=== PATIENT | female | born 1940 | race Caucasian/White ===

== ENCOUNTER 2022-05-10 14:15 | Outpatient (CLI) | payer MEDICARE, SELFPAY ==
[2022-05-10 21:42] LABS: Hemoglobin A1C 6.3 % (<5.7)
[2022-05-10 22:48] LABS: Alanine Aminotransferase 19 U/L (6-35); Albumin Level 4.2 g/dL (3.5-5.1); Alkaline Phosphatase 102 U/L (38-126); Anion Gap 11 mmol/L (8-16); Aspartate Amino Transferase 23 U/L (14-36); Bilirubin,Total 0.4 mg/dL (0.2-1.3); Blood Urea Nitrogen 24 mg/dL (7-17); Calcium 11.3 mg/dL (8.4-10.2); Carbon Dioxide 26 mmol/L (22-30); Chloride 101 mmol/L (98-107); Cholesterol 173 mg/dL (0-200); Estimated Glomerular Filt Rate 43; Glucose 125 mg/dL (65-110); HDL Direct 61 mg/dL; Potassium 3.4 mmol/L (3.4-5.0); Sodium 138 mmol/L (137-145); Triglycerides 191 mg/dL (<150)
[2022-05-10 23:02] LABS: LDL Cholesterol Direct 65 mg/dL
== END 2022-05-10 14:16 | disposition home or self-care (01) ==
PROVIDERS: PCP Family Medicine; Visit Provider Family Medicine
DX: E78.5 Hyperlipidemia, unspecified (principal); I10 Essential (primary) hypertension; Z51.81 Encounter for therapeutic drug level monitoring; Z79.899 Other long term (current) drug therapy
CPT/HCPCS: 36415; 80053; 80061; 83036

== ENCOUNTER 2023-07-07 14:56 | Outpatient (CLI) | payer MEDICARE, SELFPAY ==
[2023-07-07 18:59] LABS: Basophils Percent Auto 0.4 % (0.2-1.2); Eosinophils Absolute Auto 0.2 K/mm3 (0-0.3); Eosinophils Percent Auto 2.5 % (0-4.4); Hematocrit 48.4 % (37.0-47.0); Hemoglobin 15.5 g/dL (12.0-15.0); Immature Granulocyte Absolute 0.02 K/mm3 (0.00-0.031); Immature Granulocyte Percent A 0.2 % (0-0.5); Lymphocytes Absolute Auto 3.02 K/mm3 (0.9-3.2); Lymphocytes Percent Auto 33.8 % (18.3-44.2); Mean Corpuscular Hemoglobin 30.8 pg (26-34); Mean Corpuscular Volume 96.2 fl (80-100); Mean Platelet Volume 10.4 fl (7.4-10.4); Monocytes Absolute Auto 0.8 K/mm3 (0.1-0.6); Monocytes Percent Auto 9.4 % (2.6-8.5); Neutrophils Absolute Auto 4.8 K/mm3 (1.3-6.7); Neutrophils Percent Auto 53.7 % (45.5-73.1); Platelet Count Result 275 k/mm3 (150-375); Red Blood Count 5.03 M/mm3 (4.2-5.4); Red Cell Distribution Width 13.4 % (11.5-14.5); White Blood Count 8.9 K/mm3 (4.5-10.0)
[2023-07-07 19:15] LABS: Parathyroid Intact 145.8 pg/mL (7.5-53.5)
[2023-07-07 19:28] LABS: Alanine Aminotransferase 16 U/L (6-35); Albumin Level 4.1 g/dL (3.5-5.1); Alkaline Phosphatase 122 U/L (38-126); Anion Gap 3 mmol/L (8-16); Aspartate Amino Transferase 24 U/L (14-36); Bilirubin,Total 0.4 mg/dL (0.2-1.3); Blood Urea Nitrogen 18 mg/dL (7-17); Calcium 11.4 mg/dL (8.4-10.2); Carbon Dioxide 32 mmol/L (22-30); Chloride 102 mmol/L (98-107); Cholesterol 243 mg/dL (0-200); Estimated Glomerular Filt Rate 48; Glucose 120 mg/dL (65-110); HDL Direct 77 mg/dL; Potassium 3.6 mmol/L (3.4-5.0); Sodium 137 mmol/L (137-145); Triglycerides 155 mg/dL (<150)
[2023-07-07 19:38] LABS: LDL Cholesterol Direct 109 mg/dL
[2023-07-07 21:49] LABS: Hemoglobin A1C 5.9 % (<5.7)
[2023-07-09 21:33] LABS: Ionized Calcium 5.6 mg/dL (4.7-5.5)
== END 2023-07-07 14:57 | disposition home or self-care (01) ==
LOC: ANHGOSHLAB 14:57
PROVIDERS: PCP Family Medicine; Visit Provider Family Medicine
DX: E11.9 Type 2 diabetes mellitus without complications (principal); Z13.220 Encounter for screening for lipoid disorders; R53.83 Other fatigue; E21.1 Secondary hyperparathyroidism, not elsewhere classified; Z13.228 Encounter for screening for other metabolic disorders; Z13.29 Encounter for screening for other suspected endocrine disorder
CPT/HCPCS: 36415; 80053; 80061; 82330; 83036; 83970; 84443; 85025

== ENCOUNTER 2023-10-11 07:51 | Inpatient (IN) | payer MEDICARE, SELFPAY ==
[2023-10-11] VITALS (20 sets, daily range): BP systolic 115–129; BP diastolic 59–94; PULSE 78–106; RESP 18–22; TEMP 36.4–36.6; O2SAT 88–97; BMI 38.5
--- NOTE | ~2023-10-11 | XR_ITS ---
Portable chest x-ray Comparison: 10/11/2023 Clinical History: Hypoxia Findings: Moderate left pleural effusion present. Mild haziness present, such in the right lung. Pro bable minimal right pleural effusion. Cardiomediastinal silhouette is stable. Bones and soft tissues are unremarkable. Impression: Moderate left pleural effusion and minimal right pleural effusion. Probable mild to moderate pulmonary edema. Reviewed, dictated and finalized at location . Impression: Moderate left pleural effusion and minimal right pleural effusion. Probable mild to moderate pulmonary edema.
--- NOTE | ~2023-10-11 | US_ITS ---
EXAMINATION: US thoracentesis DATE: 10/20/2023 14:14 INDICATION: Left pleural effusion TECHNIQUE: The procedure and its risks and benefits were discussed with the patient. Potential risks discussed included bleeding, infection, and pneumothorax. The patient understood the risks and agreed to proceed. The skin was prepped and draped in sterile fashion. 1% lidocaine was used for local anes thesia. Under ultrasound guidance, a 5 Fr catheter with trochar was advanced into the left pleural ef fusion. Fluid was aspirated. The catheter was removed, and a dressing was applied. There were no imme diate complications. FINDINGS: Ultrasound images demonstrate a small left pleural effusion and the catheter within the fluid. IMPRESSION: 1. Successful ultrasound-guided thoracentesis yielding 660 mL of yellowish fluid. Reviewed, dictated and finalized at location A. IMPRESSION: 1. Successful ultrasound-guided thoracentesis yielding 660 mL of yellowish flu id.
--- NOTE | ~2023-10-11 | CT_ITS ---
EXAMINATION: CTA chest PE protocol DATE: 10/22/2023 16:34 INDICATION: hypoxia. CHF. recent DVT TECHNIQUE: Computed tomography angiography (CTA) of the chest was performed with 100 mL Omnipaque-350 intravenous contrast timed to evaluate the pulmonary arteries. Coronal maximum intensity projection 3D-reconstructions were created by the technologist. The dose-length product (DLP) was 613.70 mGy-cm. Automated exposure control and iterative reconstruction technique were employed. COMPARISON: X-ray chest . FINDINGS: Lung parenchyma and airways: Peripheral consolidation in the lingula and left lower lobe. Patchy area s of reticular and groundglass opacity in the right lower lobe. 7 mm right middle lobe pulmonary nodu le Pleura: Small bilateral pleural effusions. Thoracic inlet, axillae and chest wall: Moderate body wall edema. Thoracic aorta: No aneurysm or dissection. Calcified and noncalcified atherosclerotic plaque. Mediastinum: Dilated central pulmonary arteries as can be seen with pulmonary arterial hypertension. Heart and pericardium: Cardiomegaly. No pericardial effusion. RV/LV ratio 1.0. Coronary artery calcifications: Moderate. Upper abdomen: Likely adrenal hyperplasia. Nonobstructing renal calcifications. Chronic appearing mensah creatic calcifications. Bones: No acute osseous finding. Pulmonary arteries: Study quality: Adequate. Occluded right middle lobe segmental arterial branch. Ec centric filling defect in the right interlobar pulmonary artery. Weblike pulmonary artery filling def ects in the bilateral lower lobe and left interlobar pulmonary arteries. No definite acute pulmonary artery filling defects. IMPRESSION: No CT evidence of acute pulmonary embolus. Eccentric right interlobar filling defect with occlusion o f the right middle lobe segmental branch and weblike defect in the bilateral lower lobe pulmonary art eries, most consistent with chronic pulmonary emboli. RV/LV ratio 1.0. Peripheral lingular and left lower lobe atelectasis/consolidation. Patchy areas of reticular and grou ndglass opacities in the right lower lobe, may represent chronic embolic change or infection. 7 mm right middle lobe pulmonary nodule, consider follow-up CT chest in 3 months, PET/CT, or tissue s ampling. Small bilateral pleural effusions. Reviewed, dictated and finalized at location K. IMPRESSION: No CT evidence of acute pulmonary embolus. Eccentric right interlobar filling d efect with occlusion of the right middle lobe segmental branch and weblike defe ct in the bilateral lower lobe pulmonary arteries, most consistent with chronic pulmonary emboli. RV/LV ratio 1.0. Peripheral lingular and left lower lobe atelectasis/consolidation. Patchy areas of reticular and groundglass opacities in the right lower lobe, may represent chronic embolic change or infection. 7 mm right middle lobe pulmonary nodule, consider follow-up CT chest in 3 month s, PET/CT, or tissue sampling. Small bilateral pleural effusions.
--- NOTE | ~2023-10-11 | XR_ITS ---
[id number] 10/20/2023 14:16 Indication: Postthoracentesis. Procedure: AP portable chest Comparison: 10/19/2023 Findings: Cardiomegaly with diffuse bilateral airspace disease which may represent edema or pneumonia . No pneumothorax identified. There is bilateral perihilar consolidation. Mediastinal lymphadenopathy is not excluded. Significantly decreased size of left pleural effusion. Impression: 1: Cardiomegaly with diffuse bilateral airspace disease which may represent edema or pneumonia. 2: No pneumothorax postthoracentesis. Decreased size of left pleural effusion. Reviewed, dictated and finalized at location B. Impression: 1: Cardiomegaly with diffuse bilateral airspace disease which may represent kat ma or pneumonia. 2: No pneumothorax postthoracentesis. Decreased size of left pleural effusion.
--- NOTE | ~2023-10-11 | XR_ITS ---
XR chest 1V portable 10/19/2023 06:05 Indication: CHF Procedure: AP portable chest Comparison: Comparison to multiple prior studies sequentially, with oldest reviewed study dated 10/10. Findings: Diffuse bilateral airspace disease with increasing balance in the right lower lung. Moderat e left pleural effusion. No pneumothorax. No acute osseous abnormality. Impression: 1: Persistent diffuse bilateral airspace disease with increasing confluence right lower lung. This mo st likely is secondary to edema, although superimposed pneumonia not excluded. 2: Stable moderate left pleural effusion. Reviewed, dictated and finalized at location A. Impression: 1: Persistent diffuse bilateral airspace disease with increasing confluence rig ht lower lung. This most likely is secondary to edema, although superimposed pn eumonia not excluded. 2: Stable moderate left pleural effusion.
--- NOTE | ~2023-10-11 | XR_ITS ---
XR chest 1V portable 10/21/2023 12:27 Indication: CHF. Cough. Procedure: AP portable chest Comparison: Comparison to multiple prior studies sequentially, with oldest reviewed study dated 10/10. Findings: Moderate left pleural effusion. Bibasilar atelectasis. Cardiomegaly. No pneumothorax. No ed nikhil. Impression: 1: Bibasilar atelectasis with moderate left pleural effusion. 2: Cardiomegaly. Reviewed, dictated and finalized at location L. Impression: 1: Bibasilar atelectasis with moderate left pleural effusion. 2: Cardiomegaly.
--- NOTE | ~2023-10-11 | US_ITS ---
EXAMINATION: US venous doppler [facility] DATE: 10/12/2023 17:15 INDICATION: asymmetric edema . TECHNIQUE: Grayscale images without and with compression and Doppler images of the bilateral lower ex tremity veins were obtained. COMPARISON: None FINDINGS: The right common femoral vein, profunda (deep) femoral vein, femoral vein, popliteal vein, peroneal v ein, posterior tibial veins, gastrocnemius vein, and greater saphenous vein are patent. Dilated noncompressible femoral and popliteal veins, with minimal preserved flow. The left common fem oral vein, profunda (deep) femoral vein, peroneal vein, posterior tibial veins, gastrocnemius vein, and greater saphenous vein are patent. IMPRESSION: Acute deep venous thrombosis in the left femoral and popliteal veins. Otherwise patent bilateral lowe r extremity veins. Reviewed, dictated and finalized at location K. IMPRESSION: Acute deep venous thrombosis in the left femoral and popliteal veins. Otherwise patent bilateral lower extremity veins.
--- NOTE | ~2023-10-11 | XR_ITS ---
EXAMINATION: XR chest 2V DATE: 10/11/2023 08:55 INDICATION: Shortness of breath and hypoxia TECHNIQUE: frontal and lateral views of the chest were obtained. COMPARISON: Chest radiograph dated 03/08/2013 FINDINGS: Diffuse bilateral interstitial and airspace opacities with lower lung predominance. This obscures the cardiac silhouette. No pneumothorax. Small left pleural effusion. No pneumothorax. Severe thoracic s pondylosis. IMPRESSION: 1. Diffuse bilateral lung disease with lower lung predominance which could represent either mild to m oderate pulmonary edema or pneumonia. 2. Small left pleural effusion. Reviewed, dictated and finalized at location A. IMPRESSION: 1. Diffuse bilateral lung disease with lower lung predominance which could repr esent either mild to moderate pulmonary edema or pneumonia. 2. Small left pleural effusion.
--- NOTE | 2023-10-11 07:57 | ECG_ITS ---
Measurements Intervals [place] Rate: 98 P: ID: 0 QRS: 128 QRSD: 77 T: 120 QT: 265 QTc: 339 Interpretive Statements ATRIAL FLUTTER/TACHYCARDIA RIGHT AXIS DEVIATION NONSPECIFIC ST & T-WAVE ABNORMALITY- ANT/INF LEADS BASELINE ARTIFACT- I, II, AVR ABNORMAL ECG NO PREVIOUS ECG AVAILABLE FOR COMPARISON Electronically Signed On 10-11-2023 8:05:49 CDT by Remington Prather D.O.
[2023-10-11 08:13] LABS: Basophils Percent Auto 0.2 % (0.2-1.2); Eosinophils Absolute Auto 0.2 K/mm3 (0-0.3); Eosinophils Percent Auto 2.4 % (0-4.4); Hematocrit 37.8 % (37.0-47.0); Hemoglobin 11.5 g/dL (12.0-15.0); Immature Granulocyte Absolute 0.05 K/mm3 (0.00-0.031); Immature Granulocyte Percent A 0.6 % (0-0.5); Lymphocytes Absolute Auto 1.69 K/mm3 (0.9-3.2); Lymphocytes Percent Auto 19.7 % (18.3-44.2); Mean Corpuscular HGB Conc 30.4 g/dl (32-36); Mean Corpuscular Hemoglobin 29.1 pg (26-34); Mean Corpuscular Volume 95.7 fl (80-100); Monocytes Percent Auto 11.7 % (2.6-8.5); Neutrophils Absolute Auto 5.6 K/mm3 (1.3-6.7); Neutrophils Percent Auto 65.4 % (45.5-73.1); Platelet Count Result 246 k/mm3 (150-375); Red Blood Count 3.95 M/mm3 (4.2-5.4); Red Cell Distribution Width 17.2 % (11.5-14.5); White Blood Count 8.6 K/mm3 (4.5-10.0)
[2023-10-11 08:21] LABS: Alanine Aminotransferase 35 U/L (6-35); Albumin Level 3.3 g/dL (3.5-5.1); Alkaline Phosphatase 130 U/L (38-126); Anion Gap 2 mmol/L (8-16); Aspartate Amino Transferase 29 U/L (14-36); Bilirubin,Total 0.7 mg/dL (0.2-1.3); Blood Urea Nitrogen 23 mg/dL (7-17); Calcium 10.5 mg/dL (8.4-10.2); Carbon Dioxide 33 mmol/L (22-30); Chloride 101 mmol/L (98-107); Estimated CRCL calculation 48 ml/min; Estimated Glomerular Filt Rate 60; Glucose 130 mg/dL (65-110); Potassium 3.7 mmol/L (3.4-5.0); Sodium 136 mmol/L (137-145)
[2023-10-11] MEDS: IPRATROPIUM 0.5 MG/ALBUTEROL SULFATE 2.5 MG AMPUL.NEB 3 ML INHALATION (08:28)
[2023-10-11 08:50] LABS: NT Pro B Type Natriuretic Pept 16300 pg/mL (19.9-100)
[2023-10-11 09:10] LABS: Influenza A QL RT-PCR Negative (Negative); Influenza B QL RT-PCR Negative (Negative); RSV RNA, RT-PCR Negative (Negative); SARS-CoV-2 RNA PCR Negative (Negative)
--- NOTE | 2023-10-11 09:32 | ED.SOB ---
HPI - SOB/Dyspnea General Chief Complaint: Shortness of Breath/Dyspnea Stated Complaint: dyspnea Time Seen by Provider: 10/11/23 07:52 History of Present Illness HPI Narrative: The patient is an 83-year-old female who presents ER with shortness of breath. She is currently wearing 4 L of oxygen. She endorses increased swelling in her legs over last couple days. She has coarse rales with breathing. No chest pain. she does not feel this neck at this time. Related Data Allergies Allergy/AdvReac Type Severity Reaction Status Date / Time amphetamine Allergy Unknown unknown Verified 10/11/23 08:15 chlorpheniramine Allergy Unknown unknown Verified 10/11/23 08:15 Penicillins Allergy Unknown unknown Verified 10/11/23 08:15 phenylephrine Allergy Unknown unknown Verified 10/11/23 08:15 pseudoephedrine Allergy Unknown unknown Verified 10/11/23 08:15 tetracycline Allergy Unknown unknown Verified 10/11/23 08:15 triprolidine Allergy Unknown unknown Verified 10/11/23 08:15 Review of Systems Review of Systems: All systems reviewed & are unremarkable except as noted in HPI and below Constitutional: Constitutional: Reports no additional constitutional complaints ENT: Reports system reviewed and no additional complaints, except as documented Cardiovascular: Cardiovascular: Reports no additional cardiovascular complaints Respiratory: Respiratory: Reports chest congestion, Reports cough, Reports dyspnea and Denies wheezing Gastrointestinal: Gastrointestinal: Reports no additional gastrointestinal complaints Genitourinary: Genitourinary: Reports no additional female genitourinary complaints PMFSH Past Medical History Medical History (Updated 10/11/23 @ 11:01 by Robin Tripathi MD) Chronic obstructive bronchitis without exacerbation Essential (primary) hypertension Hyperparathyroidism , secondary, non-renal Major depressive disorder, recurrent, moderate Type 2 diabetes mellitus without complications (05/13/16) Family History Family History Sibling Family history of primary malignant neoplasm of liver Family history of renal failure Family history of congestive heart failure Father Family history of malignant neoplasm of kidney Social History Social History Smoking status: Former smoker Tobacco type: cigarettes Alcohol intake: never Exam Narrative: GENERAL: Chronically ill-appearing, well-nourished, and in no acute distress. HEAD: Normocephalic, atraumatic. EYES: PERRL and EOMI. ENT: Mucous membranes moist. NECK: Supple. CHEST: Coarse bibasilar rales. No respiratory distress. HEART: Regular rate and rhythm. Normal peripheral pulses. ABDOMEN: Soft, nontender, nondistended. EXTREMITIES: Normal range of motion. 2+ edema. SKIN: Warm, dry, no rash. NEURO: Alert and oriented x3. PSYCH: Normal mood and affect. Course Course Emergency Course: Lasix for diuresis. Admit to hospitalist service. No flu/ COVID. Chest x-ray with pleural effusions and pulmonary edema. Vital Signs Vital signs: Vital Signs Temperature 97.7 F 10/11/23 07:45 Pulse Rate 102 H 10/11/23 07:45 Respiratory Rate 22 H 10/11/23 07:45 Blood Pressure 124/94 H 10/11/23 07:45 Pulse Oximetry 88 L 10/11/23 07:45 Oxygen Delivery Nasal Cannula 10/11/23 07:45 Oxygen Flow Rate 4 10/11/23 07:45 Temperature 97.8 F 10/11/23 10:26 Pulse Rate 105 H 10/11/23 10:26 Respiratory Rate 20 10/11/23 10:26 Blood Pressure 115/65 10/11/23 10:26 Pulse Oximetry 96 10/11/23 10:26 Oxygen Delivery Nasal Cannula 10/11/23 08:08 Oxygen Flow Rate 4 10/11/23 08:08 MDM - SOB/Dyspnea Lab Data 10/11/23 08:05 10/11/23 08:05 Labs: Lab Results 10/11/23 10/11/23 Range/Units 08:05 08:29 WBC 8.6 (4.5-10.0) K/mm3 RBC 3.95 L (4.2-5.4) M/mm3 Hgb 11.5 L D (12.0-15.0) g/
[2023-10-11] MEDS: FUROSEMIDE INJ 40 MG/4 ML VIAL IV PUSH ×3 (10:06→20:06)
--- NOTE | 2023-10-11 11:13 | PC.NURSE ---
This patient, Florence Mcghee, was admitted to Medical Room 241-. Patient/family oriented to hospital policies and general routines including ID bracelet, bed and alarms, visiting hours, pain management, procedures, bathroom and other care routines, personal items, smoking policy, room service/diet, and visiting hours. Information on how to activate the Rapid Response Team has been discussed. Patient/Family are encouraged to report perceived risks to care and to ask questions if they do not understand what they are told or what they should do.
--- NOTE | 2023-10-11 12:06 | PC.NURSE ---
Spoke to nursing facility regarding settings of CPAP. Facility stated patient is non-compliant and does not wear it.
--- NOTE | 2023-10-11 13:00 | PM.IMHP ---
H&P: HPI History of Present Illness Date/Time: 10/11/23 13:00 Chief Complaint: SOB Narrative: 83 y/o F presents here with SOB with PMH of COPD, HTN, hyperparathyroid, depression, and prediabetic. Patient presented here via EMS for SOB and hypoxia from [facility]. Staff reported to EMS that patient's sat was 65% on RA, placed on supplemental O2 before their arrival. Given DuoNeb and Solu-Medrol by EMS and improved upon presentation to the Emergency Department but continued to have coarse rales per ED provider's initial assessment. Endorsing increased LE swelling over the last 5 days. Denies chest pain, pressure, or palpitations. Denies fever, chills, cough, loss of appetite, or increased body aches. Having some increased weakness over the last week that is a deviation from her baseline. No known history of CHF or heart failure. No known history of dysrhythmia. Patient does wear 2L supplemental O2 majority of the time, started a few months ago. Initial VS at presentation: ED workup showed: WBC 8.6, Hgb 11.5, creatinine 0.9, calcium 10.5, BNP 16,300, and viral PCR negative. CXR showed diffuse bilateral lung disease with lower lung predominance which could represent either mild to moderate pulmonary edema or pneumonia and small left pleural effusion. Review of Systems Review of Systems: All systems reviewed & are unremarkable except as noted in HPI and below PMFSH Past Medical History Medical History Chronic bronchitis Chronic obstructive bronchitis without exacerbation Dementia ESRD (end stage renal disease) Essential (primary) hypertension Hyperlipidemia LDL goal <100 Hyperparathyroidism , secondary, non-renal Major depressive disorder, recurrent, moderate Obesity (BMI 35.0-39.9 without comorbidity) Obstructive sleep apnea Prediabetes Family History Family History Sibling Family history of primary malignant neoplasm of liver Family history of renal failure Family history of congestive heart failure Father Family history of malignant neoplasm of kidney Social History Social History Smoking status: Current every day smoker Tobacco type: cigarettes Alcohol intake: never Substance use: never Do You Feel Safe in your Home?: Yes Lack of Transportation: YES Lack of Food: Sometimes True Current Housing: I Have Housing Concerned About Future Housing: No Difficulty Paying Gas/Electric Bills: No Difficulty Paying for Meds: No Currently Unemployed: No Education: High School Diploma/GED Difficulty w/ Childcare or Family Care: No Spiritual care concerns: No Meds Home Medications and Allergies Home Medications Medication Instructions Recorded Confirmed Type albuterol sulfate 90 mcg/actuation 1 inh inhalation Q4H PRN shortness 04/28/23 10/11/23 Rx aerosol inhaler of breath or wheezing #8.5 grams atenolol 25 mg tablet 25 mg PO HS 10/11/23 10/11/23 History budesonide-formoterol HFA 160 2 puff inhalation BID 10/11/23 10/11/23 History mcg-4.5 mcg/actuation aerosol inhaler (Symbicort) ciclopirox 0.77 % topical cream 1 applic topical BID 10/11/23 10/11/23 History furosemide 40 mg tablet 40 mg PO DAILY 10/11/23 10/11/23 History metolazone 2.5 mg tablet 2.5 mg PO DAILY 10/11/23 10/11/23 History potassium chloride 20 mEq 20 meq PO EVERY OTHER DAY 10/11/23 10/11/23 History tablet,extended release(part/cryst) pravastatin 20 mg tablet 20 mg PO HS 10/11/23 10/11/23 History sertraline 100 mg tablet 100 mg PO HS 10/11/23 10/11/23 History telmisartan 40 mg tablet 40 mg PO HS 10/11/23 10/11/23 History tiotropium bromide 18 mcg capsule 1 cap inhalation DAILY 10/11/23 10/11/23 History with inhalation device (Spiriva with HandiHaler) Allergies Allergy/AdvReac Type Severity Reaction Status Date / Time
[2023-10-11] MEDS: METOPROLOL TARTRATE INJ 5 MG/5 ML VIAL IV PUSH ×2 (15:39→23:01)
--- NOTE | 2023-10-11 16:26 | ECG_ITS ---
Measurements Intervals [place] Rate: 120 P: MT: 0 QRS: 110 QRSD: 82 T: 0 QT: 138 QTc: 195 Interpretive Statements SUPRAVENTRICULAR TACHYCARDIA RIGHT AXIS DEVIATION BORDERLINE T WAVE ABNORMALITY- DIFFUSE LEADS BASELINE ARTIFACT- I, II, III, AVR, AVL, AVF ABNORMAL ECG COMPARED TO ECG 10/11/2023 07:59:24 SUPRAVENTRICULAR TACHYCARDIA NOW PRESENT Electronically Signed On 10-11-2023 21:28:01 CDT by Remington Prather D.O.
[2023-10-11] MEDS: FLUTICASONE/SALMETEROL 115-21 MCG INHALER 1 PUFF 2 PUFF INHALATION (20:05)
[2023-10-11] MEDS: PRAVASTATIN SODIUM 20 MG TABLET PO (20:06)
[2023-10-11] MEDS: TELMISARTAN 40 MG TABLET PO (20:06)
[2023-10-11] MEDS: SERTRALINE HCL 50 MG TABLET 100 MG PO (20:06)
[2023-10-11] MEDS: atenoloL 25 MG TABLET PO (20:07)
--- NOTE | 2023-10-11 22:45 | ECG_ITS ---
Measurements Intervals [place] Rate: 73 P: HI: 0 QRS: 112 QRSD: 80 T: 55 QT: 372 QTc: 412 Interpretive Statements SINUS RHYTHM WITH FIRST DEGREE AV BLOCK ATRIAL AND VENTRICULAR PREMATURE COMPLEXES WITH COMPENSATORY PAUSES RIGHT AXIS DEVIATION BORDERLINE T WAVE ABNORMALITY- ANTEROLAT/INF LEADS BASELINE ARTIFACT- I, AVR, AVL, AVF ABNORMAL ECG COMPARED TO ECG 10/11/2023 19:34:48 SINUS RHYTHM NOW PRESENT ATRIAL AND VENTRICULAR PREMATURE COMPLEXES NOW PRESENT Electronically Signed On 10-12-2023 8:02:10 CDT by Remington Prather D.O.
[2023-10-12] VITALS (16 sets, daily range): BP systolic 100–116; BP diastolic 44–82; PULSE 66–108; RESP 17–24; TEMP 36.6–36.9; O2SAT 91–97
[2023-10-12 05:43] LABS: Basophils Percent Auto 0.1 % (0.2-1.2); Eosinophils Percent Auto 0.1 % (0-4.4); Hematocrit 35.2 % (37.0-47.0); Hemoglobin 10.6 g/dL (12.0-15.0); Immature Granulocyte Absolute 0.03 K/mm3 (0.00-0.031); Immature Granulocyte Percent A 0.3 % (0-0.5); Lymphocytes Absolute Auto 1.42 K/mm3 (0.9-3.2); Lymphocytes Percent Auto 15.5 % (18.3-44.2); Mean Corpuscular HGB Conc 30.1 g/dl (32-36); Mean Corpuscular Hemoglobin 28.8 pg (26-34); Mean Corpuscular Volume 95.7 fl (80-100); Mean Platelet Volume 10.1 fl (7.4-10.4); Monocytes Absolute Auto 1.2 K/mm3 (0.1-0.6); Monocytes Percent Auto 12.7 % (2.6-8.5); Neutrophils Absolute Auto 6.5 K/mm3 (1.3-6.7); Neutrophils Percent Auto 71.3 % (45.5-73.1); Platelet Count Result 222 k/mm3 (150-375); Red Blood Count 3.68 M/mm3 (4.2-5.4); Red Cell Distribution Width 17.2 % (11.5-14.5); White Blood Count 9.2 K/mm3 (4.5-10.0)
[2023-10-12 05:57] LABS: Alanine Aminotransferase 31 U/L (6-35); Alkaline Phosphatase 96 U/L (38-126); Anion Gap 3 mmol/L (8-16); Aspartate Amino Transferase 27 U/L (14-36); Bilirubin,Total 0.7 mg/dL (0.2-1.3); Blood Urea Nitrogen 26 mg/dL (7-17); Calcium 10.1 mg/dL (8.4-10.2); Carbon Dioxide 31 mmol/L (22-30); Chloride 100 mmol/L (98-107); Estimated CRCL calculation 44 ml/min; Estimated Glomerular Filt Rate 60; Glucose 144 mg/dL (65-110); Potassium 3.9 mmol/L (3.4-5.0); Sodium 134 mmol/L (137-145)
[2023-10-12 07:41] LABS: Hemoglobin A1C 6.8 % (<5.7)
[2023-10-12] MEDS: FLUTICASONE/SALMETEROL 115-21 MCG INHALER 1 PUFF 2 PUFF INHALATION ×2 (08:54→19:31)
[2023-10-12] MEDS: UMECLIDINIUM BROMIDE 62.5 MCG ELLIPTA 1 PUFF INHALATION (08:54)
[2023-10-12] MEDS: POTASSIUM CHLORIDE 20 MEQ PACKET (FOR LIQUID) PO (10:35)
--- NOTE | 2023-10-12 11:39 | PM.IMPN ---
Progress Note: A&P Assessment and Plan (1) Hypoxia: Code(s): R09.02 - Hypoxemia Status: Acute Assessment and Plan: Patient has been having increasing pedal edema for the past few weeks. [facility] but symptoms worsened CXR showing diffuse bilateral lung disease and small left pleural effusion. BNP 16,300. EKG as mentioned below COVID, Influenza and RSV PCR negative. Hypoxia most likely related to CHF. PNA felt less likely. Lasix IV started but BP soft now. She had brisk UOP Echo pending Continue monitoring daily weights, I&Os and blood pressure Change Lasix regiment and hold anti-HTN medications. Check LE dopplers given the asymmetry of edema (2) Tachyarrhythmia: Code(s): R00.0 - Tachycardia, unspecified Status: Acute Assessment and Plan: Initial EKG showing atrial flutter/tachycardia, RAD and nonspecific ST and T-wave changes Repeat EKG showing SVT (120) with diffuse borderline T wave changes. Metoprolol 5mg IV once given. EKG showing NSR with first degree block. She is on Atenolol 25 mg HS at home but will stop as we attempt diuresis. Dysrhythmia maybe the etiology of her CHF exacerbation TSH normal in June Cardiology consulted and metoprolol started. Monitor on tele (3) Essential (primary) hypertension: Code(s): I10 - Essential (primary) hypertension Status: Acute Assessment and Plan: Patient's blood pressure was reviewed on 10/11 Blood pressure soft today Will stop atenolol and telmisartan Follow (4) Prediabetes: Code(s): R73.03 - Prediabetes Status: Acute Assessment and Plan: A1c 6.8% The patient's blood glucose was reviewed on 10/11 Glucose remains well controlled. Continue to monitor (5) Dementia: Code(s): F03.90 - Unspecified dementia, unspecified severity, without behavioral disturbance, psychotic disturbance, mood disturbance, and anxiety Status: Acute Assessment and Plan: Stable. Continue Zoloft for depression. 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 Slept okay last night. Not on O2 at home. Patient alert but confused so hx unreliable. Review of Systems Review of Systems: ROS unobtainable: Yes unobtainable due to mental status Exam Narrative: AF 98.5 102/44 101 24 92% 3L Gen - NARD sitting up in bed Chest - bibasilar inspiratory crackles, nml RR CV - RRR S1/S2; Tele showing episodic sinus bradycardia/dysrhythmia Abd - Soft, NT/ND, Positive BS Ext - R>L 2++ pedal edema Neuro - Alert but confused (oriented to location and month). Nonfocal exam. Psych - Nml mood and affect Skin - Warm and dry Objective Data Vital Signs Vital Signs: Vital Signs - 24 hr 10/11/23 12:00 10/11/23 15:39 10/11/23 15:52 Temperature Pulse Rate 106 H 90 Respiratory Rate Blood Pressure Pulse Oximetry 97 Oxygen Delivery Nasal Cannula Oxygen Flow Rate 2 Fraction of Inspired Oxygen 28 10/11/23 16:00 10/11/23 16:46 10/11/23 20:07 Temperature Pulse Rate 78 90 Respiratory Rate Blood Pressure 120/59 L Pulse Oximetry Oxygen Delivery Oxygen Flow Rate Fraction of Inspired Oxygen 10/11/23 20:00 10/11/23 20:10 10/11/23 23:01 Temperature 97.5 F L Pulse Rate 90 100 Respiratory Rate 18 Blood Pressure 118/59 L Pulse Oximetry 94 94 Oxygen Delivery Nasal Cannula Oxygen Flow Rate 2 Fraction of Inspired Oxygen 10/11/23 23:03 10/11/23 20:00 10/12/23 00:00 Temperature Pulse Rate 101 H 104 H 71 Respiratory Rate 18 Blood Pressure 119/62 Pulse Oximetry 93 Oxygen Delivery Oxygen Flow Rate Fraction of Inspired Oxygen 10/12/23 04:00 10/12/23 05:49 10/11/23 20:06 Temperature 9
[2023-10-12] MEDS: FUROSEMIDE INJ 40 MG/4 ML VIAL 20 MG IV PUSH ×2 (12:29→21:54)
--- NOTE | 2023-10-12 12:40 | PM.CNCAR ---
Assessment and Plan Assessment and plan (1) Acute exacerbation of CHF (congestive heart failure): Code(s): I50.9 - Heart failure, unspecified Status: Acute Plan This is an 83-year-old woman who appears to have some dementia she is a long term resident and is brought to the hospital because of shortness of breath hypoxemia and what appears to be biventricular heart failure on exam and on x-ray. She is taking a regimen including angiotensin receptor sergio, furosemide and metolazone making me suspicious that she is known to have CHF early some physician is treating her as such. We do not have any records that detail anything like that. For now she is being treated with intravenous furosemide which is appropriate as she is clearly volume overloaded. An echocardiogram has been ordered which will be done tomorrow this will allow me to decide upon additional guideline directed medical therapy for her. At some point of course we need to make decisions about providing anticoagulation or not given her atrial arrhythmias with which she was admitted. Ken Patel MD [facility] History of Present Illness History of Present Illness Consult date/time: 10/12/23 12:40 Reason For Visit: CHF Exacerbation/Hypoxia Narrative: This is an 83-year-old woman I am seeing at the request of the hospitalist because of congestive heart failure. She is a poor historian and not able to provide much direct history or that is reliable in my opinion. According to the record she was brought here from long term where she resides because of symptoms of shortness of breath worsening lower extremity edema and hypoxemia. The patient herself states she lives in her own home and came here because of shortness of breath. In any event there is apparently no documented history of heart disease in the past or at least that is mentioned in the chart. She was seen in the emergency room in state of biventricular failure by exam and by chest x-ray. She was given oxygen supplementation and intravenous furosemide and admitted to the hospital for further evaluation. Her baseline medical regimen does include telmisartan and, furosemide and metolazone as well as a low-dose of atenolol. There are no prior notes in the chart that indicates a documented cardiac problems. Interestingly on arrival she was in atrial flutter with a somewhat rapid ventricular response with which she was asymptomatic or least unaware of. The subsequent EKG demonstrated another atrial tachycardia and then the low 30 EKG shows sinus rhythm with APCs. It looks like she was given some intravenous metoprolol at yesterday evening which appears to have converted heard back to sinus rhythm. She is comfortable and eating her lunch when I came in the room to see her offers no other complaints. According to the record she has dyslipidemia and a long-standing history of cigarette smoking. Review of Systems Review of Systems: ROS unobtainable: Yes unobtainable due to mental status [facility] Past Medical History Medical History (Updated 10/12/23 @ 11:48 by Maryjane Le APRN) Chronic bronchitis Chronic obstructive bronchitis without exacerbation Dementia Essential (primary) hypertension Hyperlipidemia LDL goal <100 Hyperparathyroidism , secondary, non-renal Major depressive disorder, recurrent, moderate Obesity (BMI 35.0-39.9 without comorbidity) Obstructive sleep apnea Prediabetes Family History Family History Sibling Family history of primary malignant neoplasm of liver Family history of renal failure Family history of congestive heart failure Father Family history of malignant neoplasm of kidney Social History Social History Smoking status: Current every day smoker Tobacco type: cigarettes Alcohol intake: never Substance use: never Do You Feel Safe in your Home?: Yes [place]
[2023-10-12] MEDS: PRAVASTATIN SODIUM 20 MG TABLET PO (20:00)
[2023-10-12] MEDS: APIXABAN 5 MG TABLET 10 MG PO (20:00)
[2023-10-12] MEDS: SERTRALINE HCL 50 MG TABLET 100 MG PO (20:00)
[2023-10-12 20:13] LABS: Glucose Point of Care 163 mg/dl (65-105)
[2023-10-13] VITALS (12 sets, daily range): BP systolic 104–129; BP diastolic 67–70; PULSE 71–114; RESP 16–20; TEMP 36.3–36.6; O2SAT 82–98
[2023-10-13] MEDS: FUROSEMIDE INJ 40 MG/4 ML VIAL 20 MG IV PUSH ×2 (05:10→17:22)
[2023-10-13 05:15] LABS: Basophils Percent Auto 0.2 % (0.2-1.2); Eosinophils Absolute Auto 0.2 K/mm3 (0-0.3); Eosinophils Percent Auto 1.9 % (0-4.4); Hematocrit 36.5 % (37.0-47.0); Hemoglobin 10.9 g/dL (12.0-15.0); Immature Granulocyte Absolute 0.03 K/mm3 (0.00-0.031); Immature Granulocyte Percent A 0.3 % (0-0.5); Lymphocytes Absolute Auto 1.69 K/mm3 (0.9-3.2); Lymphocytes Percent Auto 18.7 % (18.3-44.2); Mean Corpuscular HGB Conc 29.9 g/dl (32-36); Mean Corpuscular Hemoglobin 28.6 pg (26-34); Mean Corpuscular Volume 95.8 fl (80-100); Monocytes Absolute Auto 1.1 K/mm3 (0.1-0.6); Monocytes Percent Auto 11.6 % (2.6-8.5); Neutrophils Absolute Auto 6.1 K/mm3 (1.3-6.7); Neutrophils Percent Auto 67.3 % (45.5-73.1); Platelet Count Result 250 k/mm3 (150-375); Red Blood Count 3.81 M/mm3 (4.2-5.4); Red Cell Distribution Width 17.2 % (11.5-14.5)
[2023-10-13 05:34] LABS: Anion Gap 4 mmol/L (8-16); Blood Urea Nitrogen 31 mg/dL (7-17); Calcium 10.1 mg/dL (8.4-10.2); Carbon Dioxide 33 mmol/L (22-30); Chloride 98 mmol/L (98-107); Estimated CRCL calculation 44 ml/min; Estimated Glomerular Filt Rate 60; Glucose 104 mg/dL (65-110); Potassium 3.4 mmol/L (3.4-5.0); Sodium 135 mmol/L (137-145)
--- NOTE | 2023-10-13 06:00 | ECHO_ITS ---
Patient Info Name: Florence Mcghee Age: 83 years : 1940 Gender: Female Ht: 62 in Wt: 210 lbs BSA: 2.09 m2 HR: 93 bpm BP: 104 / 67 mmHg Heart Rhythm: Atrial Fibrillation Technical Quality: Fair Exam Date: 10/13/2023 12:22 PM Exam Location: Echo Lab Patient Status: Inpatient Admit Date: 10/12/2023 Staff Ordering Physician: Robin Tripathi MD Power Shovel Engineer: Attending Provider: Travis Davila MD Referring Physician: Deuce VALIENTE; Exam Type: CA echo doppler color flow Study Info Indications I50.20 - Unspecified systolic (congestive) heart failure Complete two-dimensional, color flow and Doppler transthoracic echocardiogram is performed. Summary 1. . 2. Normal left ventricular size and systolic function. 3. Right ventricular enlargement with RV systolic dysfunction and moderate to severe pulmonary hypertension. 4. Severe biatrial enlarged. 5. Atrial fibrillation. Left Ventricle Left ventricular chamber dimension is normal. Left ventricular systolic function is normal, estimated at 55-60%. Right Ventricle Right ventricular chamber dimension is moderately enlarged. Right ventricular systolic function is reduced. Left Atria Left atrial chamber dimension is severely enlarged. Right Atria Right atrial chamber dimension is severely enlarged. Aortic Valve The aortic valve is normal. Pulmonic Valve The pulmonic valve is normal. Mitral Valve The mitral valve has normal leaflets. There is mild mitral valve regurgitation. Tricuspid Valve The tricuspid valve leaflets are normal. There is moderate tricuspid valve regurgitation. Severe pulmonary hypertension, estimated pulmonary arterial systolic pressure is Empty. Pericardium/Pleural The pericardium appears normal. Aorta The aortic root size at the sinus of Valsalva is normal. Left Ventricular Outflow Tract Name Value Normal LVOT 2D LVOT Diameter 2.0 cm LVOT Doppler LVOT Peak Gradient 2 mmHg LVOT Mean Gradient 1 mmHg LVOT VTI 11 cm LVOT VTI/AV VTI Ratio 0.5 LVOT Stroke Volume 35 ml LVOT CO 2.7 l/min LVOT CI 1.3 l/min/m2 Pulmonic Valve Name Value Normal PV Doppler PV Peak Gradient 2 mmHg PV Regurgitation Doppler NE Peak End Diastolic Velocity 105 cm/s Mitral Valve Name Value Normal MV Doppler MV Decel [place] 777 cm/s2 MV PHT 42 ms
[2023-10-13] MEDS: FLUTICASONE/SALMETEROL 115-21 MCG INHALER 1 PUFF 2 PUFF INHALATION ×2 (07:40→20:51)
[2023-10-13] MEDS: UMECLIDINIUM BROMIDE 62.5 MCG ELLIPTA 1 PUFF INHALATION (07:40)
[2023-10-13 08:24] LABS: Glucose Point of Care 122 mg/dl (65-105)
[2023-10-13] MEDS: APIXABAN 5 MG TABLET 10 MG PO ×2 (08:28→20:54)
[2023-10-13] MEDS: METOPROLOL SUCCINATE EXT REL 25 MG TABCR PO (08:28)
[2023-10-13] MEDS: POTASSIUM CHLORIDE 20 MEQ ER TABLET 40 MEQ PO (08:28)
--- NOTE | 2023-10-13 11:24 | PM.IMPN ---
Progress Note: A&P Assessment and Plan (1) CHF (congestive heart failure): Code(s): I50.9 - Heart failure, unspecified <Kathy Price, Student - Last Filed: 10/13/23 14:15> Status: Acute <Kathy Zapien Dee, Student - Last Filed: 10/13/23 14:15> Assessment and Plan: Patient has been having increasing pedal edema for the past few weeks. Patient was started on Lasix at the [place] but symptoms worsened CXR showing diffuse bilateral lung disease and small left pleural effusion. BNP 16,300. EKG as mentioned below COVID, Influenza and RSV PCR negative. Hypoxia most likely related to CHF. PNA felt less likely. Lasix IV started but BP soft now. She had brisk UOP Echo pending Continue monitoring daily weights, I&Os and blood pressure Hold anti-HTN medications. Changed IV lasix 20mg to Q12hr PT/OT <Kathy Price, Student - Last Filed: 10/13/23 14:15> (2) Atrial flutter by electrocardiogram: Code(s): I48.92 - Unspecified atrial flutter <Kathy Price, Student - Last Filed: 10/13/23 14:15> Status: Acute <Kathy CesarOchoa Dee, Student - Last Filed: 10/13/23 14:15> Assessment and Plan: Initial EKG showing atrial flutter/tachycardia, RAD and nonspecific ST and T-wave changes Repeat EKG showing SVT (120) with diffuse borderline T wave changes. Metoprolol 5mg IV once given. EKG showing NSR with first degree block. She is on Atenolol 25 mg HS at home but will stop as we attempt diuresis. TSH normal in June Dysrhythmia maybe the etiology of her CHF exacerbation Pulmonary embolism may also be the etiology since she has increased oxygen requirement. However, discovery of PE would not change treatment plan as patient is being anticoagulated for DVT and then will continue it for A-flutter Cardiology consulted Continue metoprolol Continue Eliquis Monitor on tele <Kathy Price Student - Last Filed: 10/13/23 14:15> Initial EKG showing atrial flutter/tachycardia, RAD and nonspecific ST and T-wave changes Repeat EKG showing SVT (120) with diffuse borderline T wave changes. Metoprolol 5mg IV once given. EKG showing NSR with first degree block. She is on Atenolol 25 mg HS at home but will stop as we attempt diuresis. TSH normal in June Dysrhythmia maybe the etiology of her CHF exacerbation Pulmonary embolism may also be the etiology since she has increased oxygen requirement. However, discovery of PE would not change treatment plan as patient is being anticoagulated for DVT and then will continue it for A-flutter Cardiology consulted Continue metoprolol Continue Eliquis Monitor on tele <Livan Mancia MD - Last Filed: 10/13/23 17:16> (3) Deep vein thrombosis (DVT): Qualifiers: Affected thrombotic vein of extremity: femoral Chronicity: acute DVT location: lower extremity Laterality: left Qualified Code(s): I82.412 - Acute embolism and thrombosis of left femoral vein <Kathy Price Student - Last Filed: 10/13/23 14:15> Code(s): I82.409 - Acute embolism and thrombosis of unspecified deep veins of unspecified lower extremity <aKthy Price, Student - Last Filed: 10/13/23 14:15> Status: Acute <Kathy Price Student - Last Filed: 10/13/23 14:15> Assessment and Plan: Patient presents with bilateral lower extremity edema (L>R) Bilateral venous dopplers showed acute DVT in L femoral and popliteal veins Continue Eliquis Monitor <Kathy Price Student - Last Filed: 10/13/23 14:15> Patient presents with bilateral lower extremity edema (R>L) Bilateral venous dopplers showed acute DVT in L femoral and popliteal veins Continue Eliquis Monitor <Livan Mancia MD - Last Filed: 10/13/23 17:16> (4) Essential (primary) hypertension: Code(s): I10 - Essential (primary) hypertension <Kathy Price Student - Last Filed: 10/13/23 14:15> Status:
[2023-10-13 11:39] LABS: Glucose Point of Care 206 mg/dl (65-105)
--- NOTE | 2023-10-13 16:00 | PM.PNCARD ---
Progress Note: A&P Assessment and Plan (1) Acute exacerbation of CHF (congestive heart failure): Code(s): I50.9 - Heart failure, unspecified Status: Acute Assessment and Plan: Presents with shortness of breath. Echo showed right ventricular systolic dysfunction, mod-severe pHTN, and preserved LV function. Improving with diuretics Continue with IV furosemide Can shift from Telmisartan to Entresto when BP improves Evaluation and management of pulmonary HTN as an outpatient Compliance with CPAP (2) Atrial flutter by electrocardiogram: Code(s): I48.92 - Unspecified atrial flutter Status: Acute Assessment and Plan: Atrial flutter on initial EKG and atrial fibrillation on telemetry. Rate controlled. She is being anticoagulated for DVT currently. Should remain on a/c indefinitely for cardioembolic risk reduction. Subjective Date/time seen: 10/13/23 16:00 Interval history: Cardiology follow up for CHF She feels better today, shortness of breath is improving. Denies chest pain, palpitations. Swelling is improving. Review of Systems Review of Systems: ROS unobtainable: Yes unobtainable due to mental status Exam Const: General: comfortable and no acute distress HENMT: Mouth: Yes moist mucous membranes Eyes: Sclera: sclerae normal Neck: Neck: supple Other: Difficult to assess JVD a given her obesity no obvious venous distention Resp: Effort & Inspection: normal respiratory effort Other: Patient has pulmonary rales at the bases bilaterally Cardio: Rate: regular rate Rhythm: abnormal rhythm irregularly irregular GI: Auscultation: normal bowel sounds Skin: General skin exam: normal color Neuro: Other: Alert and responsive oriented to self Extrem: Other: Warm and well perfused 2+ soft pitting edema Objective Data Vital Signs Vital Signs: Vital Signs - 24 hr 10/12/23 19:16 10/12/23 19:34 10/12/23 19:41 Temperature 36.6 C Pulse Rate 83 66 Respiratory Rate 18 20 Blood Pressure 111/51 L Pulse Oximetry 94 91 Oxygen Delivery Nasal Cannula Oxygen Flow Rate 3 10/12/23 20:00 10/12/23 20:00 10/13/23 00:00 Temperature Pulse Rate 105 H 93 Respiratory Rate Blood Pressure Pulse Oximetry 91 Oxygen Delivery Nasal Cannula Oxygen Flow Rate 3 10/12/23 22:30 10/13/23 04:00 10/13/23 06:00 Temperature 36.3 C L Pulse Rate 93 108 H 97 Respiratory Rate 19 18 Blood Pressure 104/67 Pulse Oximetry 92 90 Oxygen Delivery Autopap Oxygen Flow Rate 10/13/23 07:40 10/13/23 07:40 10/13/23 08:28 Temperature Pulse Rate 74 110 H Respiratory Rate 20 Blood Pressure Pulse Oximetry 82 L Oxygen Delivery Room Air Oxygen Flow Rate 10/13/23 08:00 10/13/23 08:00 10/13/23 11:48 Temperature Pulse Rate 92 Respiratory Rate Blood Pressure Pulse Oximetry 92 Oxygen Delivery Nasal Cannula Nasal Cannula Oxygen Flow Rate 3 3 10/13/23 14:28 Temperature Pulse Rate Respiratory Rate Blood Pressure Pulse Oximetry Oxygen Delivery Nasal Cannula Oxygen Flow Rate 3 Intake/Output Intake/Output: Intake & Output 10/10/23 10/11/23 10/12/23 10/13/23 23:59 23:59 23:59 23:59 Intake Total 240 720 480 Output Total 1550 1050 1300 Balance -1310 -330 -820 Meds/Results Medications: Active Medications Generic Name Dose Route Start Last Admin Trade Name Freq PRN Reason Stop Dose Admin Acetaminophen 650 mg 10/11/23 09:49 Acetaminophen 325 Mg Tablet PO Q4H PRN Mild Pain (1-3) or Fever Hydrocodone Bitart/Acetaminophen 1 tab 10/11/23 09:49 Hydrocodone/Acetaminophen (*Crx) 5-325 Mg Tablet PO Q4H PRN Pain Rated 4-6 Albuterol/Ipratropium 3 ml 10/11/23 13:34 Ipratropium 0.5 Mg/Albuterol Sulfate 2.5 Mg Ampul.Neb 3 Ml INHALATION Q6HRT PRN Shortness Of Breath Or Wheezing Apixaban 10 mg 10/12/23 21:00 10/13/23 08:28 Api
[2023-10-13 16:50] LABS: Glucose Point of Care 128 mg/dl (65-105)
[2023-10-13] MEDS: SERTRALINE HCL 50 MG TABLET 100 MG PO (20:54)
[2023-10-13] MEDS: FAMOTIDINE 20 MG TABLET PO (20:54)
[2023-10-13] MEDS: PRAVASTATIN SODIUM 20 MG TABLET PO (20:54)
[2023-10-14] VITALS (13 sets, daily range): BP systolic 121–125; BP diastolic 54–89; PULSE 88–119; RESP 18–22; TEMP 36.2–36.7; O2SAT 90–93
[2023-10-14 06:14] LABS: Basophils Percent Auto 0.2 % (0.2-1.2); Eosinophils Absolute Auto 0.2 K/mm3 (0-0.3); Eosinophils Percent Auto 2.9 % (0-4.4); Hematocrit 38.4 % (37.0-47.0); Hemoglobin 11.3 g/dL (12.0-15.0); Immature Granulocyte Absolute 0.05 K/mm3 (0.00-0.031); Immature Granulocyte Percent A 0.6 % (0-0.5); Lymphocytes Absolute Auto 1.24 K/mm3 (0.9-3.2); Mean Corpuscular HGB Conc 29.4 g/dl (32-36); Mean Corpuscular Hemoglobin 28.8 pg (26-34); Mean Corpuscular Volume 97.7 fl (80-100); Mean Platelet Volume 9.7 fl (7.4-10.4); Monocytes Percent Auto 11.7 % (2.6-8.5); Neutrophils Absolute Auto 5.7 K/mm3 (1.3-6.7); Neutrophils Percent Auto 69.6 % (45.5-73.1); Platelet Count Result 226 k/mm3 (150-375); Red Blood Count 3.93 M/mm3 (4.2-5.4); Red Cell Distribution Width 17.2 % (11.5-14.5); White Blood Count 8.2 K/mm3 (4.5-10.0)
[2023-10-14 06:28] LABS: Anion Gap 2 mmol/L (8-16); Blood Urea Nitrogen 24 mg/dL (7-17); Calcium 10.1 mg/dL (8.4-10.2); Carbon Dioxide 34 mmol/L (22-30); Chloride 101 mmol/L (98-107); Estimated CRCL calculation 43 ml/min; Estimated Glomerular Filt Rate 60; Glucose 116 mg/dL (65-110); Phosphorus 2.7 mg/dL (2.5-4.5); Potassium 3.6 mmol/L (3.4-5.0); Sodium 137 mmol/L (137-145)
[2023-10-14 06:50] LABS: Anisocytosis 1+; Hypochromasia 1+; Platelet Estimate Adequate (Adequate); Schistocytes None Seen
[2023-10-14] MEDS: FLUTICASONE/SALMETEROL 115-21 MCG INHALER 1 PUFF 2 PUFF INHALATION ×2 (08:23→19:23)
[2023-10-14] MEDS: UMECLIDINIUM BROMIDE 62.5 MCG ELLIPTA 1 PUFF INHALATION (08:23)
[2023-10-14 08:55] LABS: Glucose Point of Care 107 mg/dl (65-105)
[2023-10-14] MEDS: METOPROLOL SUCCINATE EXT REL 25 MG TABCR PO (09:05)
[2023-10-14] MEDS: POTASSIUM CHLORIDE 20 MEQ PACKET (FOR LIQUID) PO (09:06)
[2023-10-14] MEDS: FUROSEMIDE INJ 40 MG/4 ML VIAL 20 MG IV PUSH ×2 (09:06→16:28)
[2023-10-14] MEDS: APIXABAN 5 MG TABLET 10 MG PO ×2 (09:06→21:16)
[2023-10-14] MEDS: FAMOTIDINE 20 MG TABLET PO ×2 (09:06→21:16)
--- NOTE | 2023-10-14 10:18 | PM.IMPN ---
Progress Note: A&P Assessment and Plan (1) CHF (congestive heart failure): Code(s): I50.9 - Heart failure, unspecified <Kathy Zapien Dee, Student - Last Filed: 10/14/23 15:36> Status: Acute <Kathy CesarOchoa Price Student - Last Filed: 10/14/23 15:36> Assessment and Plan: Patient has been having increasing pedal edema for the past few weeks. Patient was started on [place]ix at the [place] but symptoms worsened CXR showing diffuse bilateral lung disease and small left pleural effusion. BNP 16,300. EKG as mentioned below COVID, Influenza and RSV PCR negative. Hypoxia most likely related to CHF. PNA felt less likely. Lasix IV started but BP soft now. She had brisk UOP Echo: right ventricular systolic dysfunction, mod-severe pHTN, and preserved LV function; EF of 55-60% Continue monitoring daily weights, I&Os and blood pressure Begin Entresto today (10/13) per cardiology recs Continue IV lasix 20mg to Q12hr; will transition to PO lasix tomorrow PT/OT <Kathy TaliOchoa Price, Student - Last Filed: 10/14/23 15:36> Patient has been having increasing pedal edema for the past few weeks. Patient was started on [place]ix at the [place] but symptoms worsened CXR showing diffuse bilateral lung disease and small left pleural effusion. BNP 16,300. EKG as mentioned below COVID, Influenza and RSV PCR negative. Hypoxia most likely related to CHF. PNA felt less likely. Lasix IV started but BP soft now. She had brisk UOP Echo: right ventricular systolic dysfunction, mod-severe pHTN, and preserved LV function; EF of 55-60% Continue monitoring daily weights, I&Os and blood pressure Begin Entresto today (10/13) per cardiology recs Continue IV lasix 20mg to Q12hr; will transition to PO lasix tomorrow PT/OT Refusing her CPAP at night. Right sided findings on Echo probably chronic from poorly treated ESTER. Hold on repeating ApneaLink since patient not tolerating current treatment <Livan Mancia MD - Last Filed: 10/14/23 18:32> (2) Atrial flutter by electrocardiogram: Code(s): I48.92 - Unspecified atrial flutter <Kathy aZpien Dee, Student - Last Filed: 10/14/23 15:36> Status: Acute <Kathy Price, Student - Last Filed: 10/14/23 15:36> Assessment and Plan: Initial EKG showing atrial flutter/tachycardia, RAD and nonspecific ST and T-wave changes Repeat EKG showing SVT (120) with diffuse borderline T wave changes. Metoprolol 5mg IV once given. EKG showing NSR with first degree block. She is on Atenolol 25 mg HS at home but will stop as we attempt diuresis. TSH normal in June Dysrhythmia maybe the etiology of her CHF exacerbation Pulmonary embolism may also be the etiology since she has increased oxygen requirement. However, discovery of PE would not change treatment plan as patient is being anticoagulated for DVT and then will continue it for A-flutter Cardiology consulted Continue metoprolol Continue Eliquis Monitor on tele <Kathy CesarOchoa Price Student - Last Filed: 10/14/23 15:36> Initial EKG showing atrial flutter/tachycardia, RAD and nonspecific ST and T-wave changes Repeat EKG showing SVT (120) with diffuse borderline T wave changes. Metoprolol 5mg IV once given. EKG showing NSR with first degree block. She is on Atenolol 25 mg HS at home but will stop as we attempt diuresis. TSH normal in June Dysrhythmia maybe the etiology of her CHF exacerbation Pulmonary embolism may also be the etiology since she has increased oxygen requirement. However, discovery of PE would not change treatment plan as patient is being anticoagulated for DVT and then will continue it for A-flutter Cardiology consulted Continue metoprolol Continue Eliquis Monitor on tele <Livan Mancia MD - Last Filed: 10/14/23 18:32> (3) Deep vein thrombosis (DVT): Qualifiers: Affected thrombotic vein of extremity: femoral Chronicity: acute DVT location: lower extremity Lateralit
[2023-10-14 11:46] LABS: Glucose Point of Care 208 mg/dl (65-105)
--- NOTE | 2023-10-14 12:16 | PM.PNCARD ---
Progress Note: A&P Assessment and Plan (1) Acute exacerbation of CHF (congestive heart failure): Code(s): I50.9 - Heart failure, unspecified Status: Acute Assessment and Plan: Patient presented with signs and symptoms of congestive heart failure. Echo showed right ventricular systolic dysfunction, mod-severe pHTN, and preserved LV function.? Improving with diuretics. Continue with IV Lasix for now. Monitor strict I/Os if possible (patient has urinary incontinence and is requiring pure wick) Blood pressures are stable. Will start Entersto starting tonight. (2) Atrial flutter by electrocardiogram: Code(s): I48.92 - Unspecified atrial flutter Status: Acute Assessment and Plan: In atrial flutter currently per tele. Overall rate controlled. Continue Metoprolol. Continue Eliquis for anticoagulation. (3) Deep vein thrombosis (DVT): Qualifiers: DVT location: lower extremity Affected thrombotic vein of extremity: femoral Chronicity: acute Laterality: left Qualified Code(s): I82.412 - Acute embolism and thrombosis of left femoral vein Code(s): I82.409 - Acute embolism and thrombosis of unspecified deep veins of unspecified lower extremity Status: Acute Assessment and Plan: Venous Duplex shows acute DVT in the left femoral and popliteal veins. Continue Eliquis per the DVT dosing. (4) Type 2 diabetes mellitus without complications: Onset Date: 05/13/16 Qualifiers: Diabetes mellitus extermination supervisor insulin use: without skilled nursing use Qualified Code(s): E11.9 - Type 2 diabetes mellitus without complications Code(s): E11.9 - Type 2 diabetes mellitus without complications Status: Acute Assessment and Plan: Management as per primary team. (5) Essential (primary) hypertension: Code(s): I10 - Essential (primary) hypertension Status: Acute Assessment and Plan: Stable. Stopped Telmisartan and starting Entresto. Continue Metoprolol. Subjective Date/time seen: 10/14/23 12:16 Interval history: Reason for visit: Congestive heart failure HPI: This is an 83-year-old woman I am seeing at the request of the hospitalist because of congestive heart failure.? She is a poor historian and not able to provide much direct history or that is reliable in my opinion.? According to the record she was brought here from [facility] where she resides because of symptoms of shortness of breath worsening lower extremity edema and hypoxemia.? The patient herself states she lives in her own home and came here because of shortness of breath.? In any event there is apparently no documented history of heart disease in the past or at least that is mentioned in the chart.? She was seen in the emergency room in state of biventricular failure by exam and by chest x-ray.? She was given oxygen supplementation and intravenous furosemide and admitted to the hospital for further evaluation.? Her baseline medical regimen does include telmisartan and, furosemide and metolazone as well as a low-dose of atenolol.? There are no prior notes in the chart that indicates a documented cardiac problems.? Interestingly on arrival she was in atrial flutter with a somewhat rapid ventricular response with which she was asymptomatic or least unaware of.? The subsequent EKG demonstrated another atrial tachycardia and then the low 30 EKG shows sinus rhythm with APCs.? It looks like she was given some intravenous metoprolol at yesterday evening which appears to have converted heard back to sinus rhythm.? She is comfortable and eating her lunch when I came in the room to see her offers no other complaints.? According to the record she has dyslipidemia and a long-standing history of cigarette smoking. Date of service 10/12: She feels better today, shortness of breath is improving. Denies chest pain, palpitations. Swelling is improving. Date of service 10/13: Tele looks like to be atrial flutter
[2023-10-14 16:58] LABS: Glucose Point of Care 127 mg/dl (65-105)
[2023-10-14 20:50] LABS: Glucose Point of Care 149 mg/dl (65-105)
[2023-10-14] MEDS: SACUBITRIL/VALSARTAN 12-13 MG TABLET 1 TAB PO (21:15)
[2023-10-14] MEDS: SERTRALINE HCL 50 MG TABLET 100 MG PO (21:16)
[2023-10-14] MEDS: PRAVASTATIN SODIUM 20 MG TABLET PO (21:16)
[2023-10-15] VITALS (12 sets, daily range): BP systolic 108–126; BP diastolic 52–86; PULSE 90–126; RESP 16–20; TEMP 36.5–37.1; O2SAT 93–96
[2023-10-15 06:28] LABS: Anion Gap 1 mmol/L (8-16); Blood Urea Nitrogen 20 mg/dL (7-17); Calcium 10.1 mg/dL (8.4-10.2); Carbon Dioxide 34 mmol/L (22-30); Chloride 102 mmol/L (98-107); Estimated CRCL calculation 48 ml/min; Estimated Glomerular Filt Rate > 60; Glucose 119 mg/dL (65-110); Potassium 3.7 mmol/L (3.4-5.0); Sodium 137 mmol/L (137-145)
[2023-10-15 07:55] LABS: Glucose Point of Care 117 mg/dl (65-105)
[2023-10-15] MEDS: ACETAMINOPHEN 325 MG TABLET 650 MG PO ×2 (09:20→20:21)
[2023-10-15] MEDS: METOPROLOL SUCCINATE EXT REL 25 MG TABCR PO (09:22)
[2023-10-15] MEDS: FAMOTIDINE 20 MG TABLET PO ×2 (09:22→20:22)
[2023-10-15] MEDS: APIXABAN 5 MG TABLET 10 MG PO ×2 (09:22→20:22)
[2023-10-15] MEDS: SACUBITRIL/VALSARTAN 12-13 MG TABLET 1 TAB PO ×2 (09:22→20:22)
[2023-10-15] MEDS: FUROSEMIDE INJ 40 MG/4 ML VIAL 20 MG IV PUSH (09:23)
[2023-10-15] MEDS: FLUTICASONE/SALMETEROL 115-21 MCG INHALER 1 PUFF 2 PUFF INHALATION ×2 (09:36→21:44)
[2023-10-15] MEDS: UMECLIDINIUM BROMIDE 62.5 MCG ELLIPTA 1 PUFF INHALATION (09:36)
--- NOTE | 2023-10-15 11:11 | PM.PNCARD ---
Progress Note: A&P Assessment and Plan (1) Acute exacerbation of CHF (congestive heart failure): Code(s): I50.9 - Heart failure, unspecified Status: Acute Assessment and Plan: Patient presented with signs and symptoms of congestive heart failure. Echo showed right ventricular systolic dysfunction, mod-severe pHTN, and preserved LV function.? Improved with diuresis. Will transition IV Lasix to PO Lasix. Started Entresto 10/13 and is tolerating well. Continue Entresto. (2) Atrial flutter by electrocardiogram: Code(s): I48.92 - Unspecified atrial flutter Status: Acute Assessment and Plan: Continue Metoprolol. Continue Eliquis for anticoagulation. (3) Deep vein thrombosis (DVT): Qualifiers: DVT location: lower extremity Affected thrombotic vein of extremity: femoral Chronicity: acute Laterality: left Qualified Code(s): I82.412 - Acute embolism and thrombosis of left femoral vein Code(s): I82.409 - Acute embolism and thrombosis of unspecified deep veins of unspecified lower extremity Status: Acute Assessment and Plan: Venous Duplex shows acute DVT in the left femoral and popliteal veins. Continue Eliquis per the DVT dosing. (4) Type 2 diabetes mellitus without complications: Onset Date: 05/13/16 Qualifiers: Diabetes mellitus longterm insulin use: without longterm use Qualified Code(s): E11.9 - Type 2 diabetes mellitus without complications Code(s): E11.9 - Type 2 diabetes mellitus without complications Status: Acute Assessment and Plan: Management as per primary team. (5) Essential (primary) hypertension: Code(s): I10 - Essential (primary) hypertension Status: Acute Assessment and Plan: Stable. Stopped Telmisartan and started Entresto. Continue Metoprolol. Plan Recommendations and plan discussed with Hospitalist Dr. Meyer. Cardiology will sign off at this time. Please call us back if needed. Subjective Date/time seen: 10/15/23 11:11 Interval history: Reason for visit: Congestive heart failure HPI: This is an 83-year-old woman I am seeing at the request of the hospitalist because of congestive heart failure.? She is a poor historian and not able to provide much direct history or that is reliable in my opinion.? According to the record she was brought here from care home where she resides because of symptoms of shortness of breath worsening lower extremity edema and hypoxemia.? The patient herself states she lives in her own home and came here because of shortness of breath.? In any event there is apparently no documented history of heart disease in the past or at least that is mentioned in the chart.? She was seen in the emergency room in state of biventricular failure by exam and by chest x-ray.? She was given oxygen supplementation and intravenous furosemide and admitted to the hospital for further evaluation.? Her baseline medical regimen does include telmisartan and, furosemide and metolazone as well as a low-dose of atenolol.? There are no prior notes in the chart that indicates a documented cardiac problems.? Interestingly on arrival she was in atrial flutter with a somewhat rapid ventricular response with which she was asymptomatic or least unaware of.? The subsequent EKG demonstrated another atrial tachycardia and then the low 30 EKG shows sinus rhythm with APCs.? It looks like she was given some intravenous metoprolol at yesterday evening which appears to have converted heard back to sinus rhythm.? She is comfortable and eating her lunch when I came in the room to see her offers no other complaints.? According to the record she has dyslipidemia and a long-standing history of cigarette smoking. Date of service 10/12: She feels better today, shortness of breath is improving. Denies chest pain, palpitations. Swelling is improving. Date of service 10/13: Tele looks like to be atrial flutter, she is h
--- NOTE | 2023-10-15 11:34 | PM.IMPN ---
Progress Note: A&P Assessment and Plan (1) CHF (congestive heart failure): Code(s): I50.9 - Heart failure, unspecified Status: Acute Assessment and Plan: Patient has been having increasing pedal edema for the past few weeks. Patient was started on [facility] the [facility] but symptoms worsened CXR showing diffuse bilateral lung disease and small left pleural effusion. BNP 16,300. EKG as mentioned below pt has been doing well on iv lasix can transition to oral lasix Echo: right ventricular systolic dysfunction, mod-severe pHTN, and preserved LV function; EF of 55-60% Transition to oral lasix Wean off oxygen PT/OT Pt may benefit from placement unable to complete ADLS (2) Atrial flutter by electrocardiogram: Code(s): I48.92 - Unspecified atrial flutter Status: Acute Assessment and Plan: Initial EKG showing atrial flutter/tachycardia, RAD and nonspecific ST and T-wave changes Repeat EKG showing SVT (120) with diffuse borderline T wave changes. Metoprolol 5mg IV once given. EKG showing NSR with first degree block. Cardiology consulted Continue metoprolol Continue Eliquis pt back to nsr presently doing well on current medications (3) Deep vein thrombosis (DVT): Qualifiers: DVT location: lower extremity Affected thrombotic vein of extremity: femoral Chronicity: acute Laterality: left Qualified Code(s): I82.412 - Acute embolism and thrombosis of left femoral vein Code(s): I82.409 - Acute embolism and thrombosis of unspecified deep veins of unspecified lower extremity Status: Acute Assessment and Plan: Patient presents with bilateral lower extremity edema (L>R) Bilateral venous dopplers showed acute DVT in L femoral and popliteal veins Continue Eliquis (4) Essential (primary) hypertension: Code(s): I10 - Essential (primary) hypertension Status: Acute Assessment and Plan: bp is stable on atenolol lasix telmisartan and metolazone (5) Prediabetes: Code(s): R73.03 - Prediabetes Status: Acute Assessment and Plan: A1c 6.8% Glucose remains well controlled. (6) Dementia: Code(s): F03.90 - Unspecified dementia, unspecified severity, without behavioral disturbance, psychotic disturbance, mood disturbance, and anxiety Status: Acute Assessment and Plan: Stable. Continue Zoloft for depression. Not on treatment for dementia Plan DVT Prophylaxis: SCDs Code Status: Full Code Subjective Date/time seen: 10/15/23 11:34 Interval history: 83 y/o female with PMHx of COPD and HTN here for SOB and bilateral leg swelling likely chf related pt admitted for chf exacerbation pt still needing 3 liters of oxygen try to wean off oxygen today d/w cardiology ok to transition to oral lasix today pt appears unkempt and has difficulty looking after herself and doing her adls may need placement on dc Review of Systems Review of Systems: sob improving swelling improved Exam Narrative: Gen - comfortable disoriented x3 Chest - bibasilar inspiratory crackles fine CV - RRR S1/S2 Abd - Soft, NT/ND, Positive BS Ext - minimal edema bl Neuro - Alert but confused (oriented to location and month). Nonfocal exam. Psych - Nml mood and affect Skin - Warm and dry Objective Data Vital Signs Vital Signs: Vital Signs - 24 hr 10/14/23 12:04 10/14/23 14:10 10/14/23 16:00 Temperature 36.2 C L Pulse Rate 98 111 H 96 Respiratory Rate 22 H Blood Pressure 121/74 Pulse Oximetry 92 Oxygen Delivery Oxygen Flow Rate Fraction of Inspired Oxygen 10/14/23 19:23 10/14/23 19:26 10/14/23 20:03 Temperature 36.7 C Pulse Rate 88 119 H Respiratory Rate 18 18 Blood Pressure 122/54 L Pulse Oximetry 93 90 Oxygen Delivery Nasal Cannula Oxygen Flow Rate 3 Fraction of Inspired Oxygen 32 10/14/23 20:00 10/14/23 20:00 10/15/23 00:00 T
[2023-10-15 11:41] LABS: Bacteria Urine 4+ /hpf; Non Pathogenic Casts 0-2; RBC Urine >100 /hpf (0-2); Squamous Epithelial Cell Urine None Seen /hpf (Few); WBC Urine >100 /hpf (0-3)
[2023-10-15 11:47] LABS: Appearance Urine Cloudy (Clear); Bilirubin Urine Negative (Negative); Blood Urine 3+ (Negative); Glucose Urine UA Negative (Negative); Ketones Urine Negative (Negative); Leukocyte Esterase Ur 2+ LEU/UL (Negative); Nitrate Urine Positive (Negative); Protein Urine Trace mg/dL (Negative); Specific Grav Ur 1.007 (1.001-1.035); pH Urine 8.5 (5.0-9.0)
[2023-10-15 11:48] LABS: Add Urine Microscopic? YES; Color Urine Light Red (Yellow)
[2023-10-15 11:53] LABS: Glucose Point of Care 141 mg/dl (65-105)
--- NOTE | 2023-10-15 11:57 | P.CDI_ITS ---
CDI Query Clarification Request CHF noted in the assessment and plan. Elevated BNP on 10/11/23 lab work. Patient receiving Lasix and Entresto. Lasix listed as a home medication. (1) CHF (congestive heart failure): ?Code(s): I50.9 - Heart failure, unspecified ?Status:?Acute ?Assessment and Plan: Patient has been having increasing pedal edema for the past few weeks. Patient was started on Lasix at the OR but symptoms worsened CXR showing diffuse bilateral lung disease and small left pleural effusion.? BNP 16,300.? EKG as mentioned below pt has been doing well on iv lasix can transition to oral lasix Echo: right ventricular systolic dysfunction, mod-severe pHTN, and preserved LV function; EF of 55-60% Please specify type and acuity of heart failure if known. * Acute * Chronic * Acute on Chronic * Unknown * Systolic * Diastolic * Combined Systolic and Diastolic * Unknown <Valentina Han RN - Last Filed: 10/15/23 12:01> Clarified Diagnosis Clarified Diagnosis: ACute on chronic systolic CHF <Maryjo Meyer MD - Last Filed: 10/16/23 17:29>
[2023-10-15] MEDS: CIPROFLOXACIN 500 MG TAB PO ×2 (12:40→20:22)
[2023-10-15 16:51] LABS: Glucose Point of Care 151 mg/dl (65-105)
--- NOTE | 2023-10-15 18:02 | ECG_ITS ---
Measurements Intervals [place] Rate: 116 P: HI: 0 QRS: 120 QRSD: 83 T: -34 QT: 306 QTc: 426 Interpretive Statements ATRIAL FLUTTER WITH RAPID VENTRICULAR RESPONSE RIGHT AXIS DEVIATION LOW VOLTAGE- PRECORDIAL LEADS BORDERLINE T WAVE ABNORMALITY- ANT/INF LEADS ABNORMAL ECG COMPARED TO ECG 10/11/2023 23:08:12 ATRIAL FLUTTER NOW PRESENT Electronically Signed On 10-15-2023 19:12:35 CDT by Remington Prather D.O.
[2023-10-15] MEDS: SERTRALINE HCL 50 MG TABLET 100 MG PO (20:22)
[2023-10-15] MEDS: PRAVASTATIN SODIUM 20 MG TABLET PO (20:22)
[2023-10-15 22:26] LABS: Glucose Point of Care 149 mg/dl (65-105)
[2023-10-16] VITALS (13 sets, daily range): BP systolic 119–130; BP diastolic 65–79; PULSE 71–116; RESP 16–20; TEMP 36.6; O2SAT 92–96
[2023-10-16 06:15] LABS: Anion Gap 3 mmol/L (8-16); Blood Urea Nitrogen 24 mg/dL (7-17); Calcium 10.5 mg/dL (8.4-10.2); Carbon Dioxide 36 mmol/L (22-30); Chloride 101 mmol/L (98-107); Estimated CRCL calculation 35 ml/min; Estimated Glomerular Filt Rate 48; Glucose 122 mg/dL (65-110); Potassium 4.4 mmol/L (3.4-5.0); Sodium 140 mmol/L (137-145)
[2023-10-16] MEDS: FLUTICASONE/SALMETEROL 115-21 MCG INHALER 1 PUFF 2 PUFF INHALATION ×2 (08:41→20:44)
[2023-10-16] MEDS: UMECLIDINIUM BROMIDE 62.5 MCG ELLIPTA 1 PUFF INHALATION (08:41)
[2023-10-16] MEDS: POTASSIUM CHLORIDE 20 MEQ PACKET (FOR LIQUID) PO (09:00)
[2023-10-16] MEDS: SACUBITRIL/VALSARTAN 12-13 MG TABLET 1 TAB PO ×2 (09:00→20:12)
[2023-10-16] MEDS: CIPROFLOXACIN 500 MG TAB PO ×2 (09:00→20:12)
[2023-10-16] MEDS: FAMOTIDINE 20 MG TABLET PO ×2 (09:00→20:12)
[2023-10-16] MEDS: FUROSEMIDE 40 MG TABLET PO (09:00)
[2023-10-16] MEDS: APIXABAN 5 MG TABLET 10 MG PO ×2 (09:00→20:12)
[2023-10-16] MEDS: METOPROLOL SUCCINATE EXT REL 50 MG TABCR PO (09:02)
--- NOTE | 2023-10-16 09:04 | PM.PNCARD ---
Progress Note: A&P Assessment and Plan (1) Acute exacerbation of CHF (congestive heart failure): Code(s): I50.9 - Heart failure, unspecified Status: Acute Assessment and Plan: Patient presented with signs and symptoms of congestive heart failure. Echo showed right ventricular systolic dysfunction, mod-severe pHTN, and preserved LV function.? Improved with diuresis. Continue PO Lasix. Started Entresto 10/13 and is tolerating well. Continue Entresto. (2) Atrial flutter by electrocardiogram: Code(s): I48.92 - Unspecified atrial flutter Status: Acute Assessment and Plan: Will increase Metoprolol from 25mg once daily to 50mg once daily to optimize her rate control. Continue Eliquis for anticoagulation. (3) Deep vein thrombosis (DVT): Qualifiers: DVT location: lower extremity Affected thrombotic vein of extremity: femoral Chronicity: acute Laterality: left Qualified Code(s): I82.412 - Acute embolism and thrombosis of left femoral vein Code(s): I82.409 - Acute embolism and thrombosis of unspecified deep veins of unspecified lower extremity Status: Acute Assessment and Plan: Venous Duplex shows acute DVT in the left femoral and popliteal veins. Continue Eliquis per the DVT dosing. (4) Type 2 diabetes mellitus without complications: Onset Date: 05/13/16 Qualifiers: Diabetes mellitus terminal make up operator insulin use: without terminal make up operator use Qualified Code(s): E11.9 - Type 2 diabetes mellitus without complications Code(s): E11.9 - Type 2 diabetes mellitus without complications Status: Acute Assessment and Plan: Management as per primary team. (5) Essential (primary) hypertension: Code(s): I10 - Essential (primary) hypertension Status: Acute Assessment and Plan: Stable. Stopped Telmisartan and started Entresto. Continue Metoprolol. Plan Cardiology will follow along as needed. Subjective Date/time seen: 10/16/23 09:04 Interval history: Reason for visit: Congestive heart failure HPI: This is an 83-year-old woman I am seeing at the request of the hospitalist because of congestive heart failure.? She is a poor historian and not able to provide much direct history or that is reliable in my opinion.? According to the record she was brought here from senior care where she resides because of symptoms of shortness of breath worsening lower extremity edema and hypoxemia.? The patient herself states she lives in her own home and came here because of shortness of breath.? In any event there is apparently no documented history of heart disease in the past or at least that is mentioned in the chart.? She was seen in the emergency room in state of biventricular failure by exam and by chest x-ray.? She was given oxygen supplementation and intravenous furosemide and admitted to the hospital for further evaluation.? Her baseline medical regimen does include telmisartan and, furosemide and metolazone as well as a low-dose of atenolol.? There are no prior notes in the chart that indicates a documented cardiac problems.? Interestingly on arrival she was in atrial flutter with a somewhat rapid ventricular response with which she was asymptomatic or least unaware of.? The subsequent EKG demonstrated another atrial tachycardia and then the low 30 EKG shows sinus rhythm with APCs.? It looks like she was given some intravenous metoprolol at yesterday evening which appears to have converted heard back to sinus rhythm.? She is comfortable and eating her lunch when I came in the room to see her offers no other complaints.? According to the record she has dyslipidemia and a long-standing history of cigarette smoking. Date of service 10/12: She feels better today, shortness of breath is improving. Denies chest pain, palpitations. Swelling is improving. Date of service 10/13: Tele looks like to be atrial flutter, she is however rate controlled for the most part
--- NOTE | 2023-10-16 09:43 | PM.IMPN ---
Progress Note: A&P Assessment and Plan (1) CHF (congestive heart failure): Code(s): I50.9 - Heart failure, unspecified Status: Acute Assessment and Plan: Patient has been having increasing pedal edema for the past few weeks. [facility] symptoms worsened CXR showing diffuse bilateral lung disease and small left pleural effusion. BNP 16,300. EKG as mentioned below pt has been doing well on iv lasix can transition to oral lasix Echo: right ventricular systolic dysfunction, mod-severe pHTN, and preserved LV function; EF of 55-60% Transition to oral lasix Wean off oxygen PT/OT Dc back to [facility] Pt will benefit from home oxygen assessment prior to DC difficult to wean off oxygen (2) Atrial flutter by electrocardiogram: Code(s): I48.92 - Unspecified atrial flutter Status: Acute Assessment and Plan: Initial EKG showing atrial flutter/tachycardia, RAD and nonspecific ST and T-wave changes Repeat EKG showing SVT (120) with diffuse borderline T wave changes. Metoprolol 5mg IV once given. EKG showing NSR with first degree block. Cardiology consulted Continue metoprolol Continue Eliquis Pt back to r presently doing well on current medications (3) Deep vein thrombosis (DVT): Qualifiers: Affected thrombotic vein of extremity: femoral Chronicity: acute DVT location: lower extremity Laterality: left Qualified Code(s): I82.412 - Acute embolism and thrombosis of left femoral vein Code(s): I82.409 - Acute embolism and thrombosis of unspecified deep veins of unspecified lower extremity Status: Acute Assessment and Plan: Patient presents with bilateral lower extremity edema (L>R) Bilateral venous dopplers showed acute DVT in L femoral and popliteal veins Continue Eliquis (4) Essential (primary) hypertension: Code(s): I10 - Essential (primary) hypertension Status: Acute Assessment and Plan: Bp is stable on lasix, metoprolol and entresto Cardiology rounding see recommendations (5) Prediabetes: Code(s): R73.03 - Prediabetes Status: Acute Assessment and Plan: A1c 6.8% Glucose remains well controlled. (6) Dementia: Code(s): F03.90 - Unspecified dementia, unspecified severity, without behavioral disturbance, psychotic disturbance, mood disturbance, and anxiety Status: Acute Assessment and Plan: Stable. Continue Zoloft for depression. Not on treatment for dementia (7) UTI (urinary tract infection): Code(s): N39.0 - Urinary tract infection, site not specified Status: Acute Assessment and Plan: Suspected UA is positive Started oral ciprofloxacin UC pending Await for UC results then Dc back to [facility] Plan DVT Prophylaxis: SCDs Code Status: Full Code Subjective Date/time seen: 10/16/23 09:43 Interval history: 83 y/o female with PMHx of COPD and HTN here for SOB and bilateral leg swelling likely chf related Pt admitted for chf exacerbation Pt still needing 3 liters of oxygen Try to wean off oxygen today D/w cardiology ok to transition to oral lasix today Pt appears unkempt and has difficulty looking after herself and doing her ADLS Pt can be discharged back to [facility] when medically cleared Pt has suspected UTI, UA is positive, awaiting UC Pt is pleasantly confused h/o dementia Review of Systems Review of Systems: Pleasantly confused All systems reviewed & are unremarkable except as noted in HPI and below Exam Narrative: Gen - comfortable disoriented x3 Chest - bibasilar inspiratory crackles fine CV - RRR S1/S2 Abd - Soft, NT/ND, Positive BS Ext - minimal edema bl Neuro - Alert but confused (oriented to location and month). Nonfocal exam. Psych - Nml mood and affect Skin - Warm and dry Objective Data Vital Signs Vital Signs: Vit
--- NOTE | 2023-10-16 19:49 | PC.NURSE ---
This RN called US department about the order for thoracentesis. RN was informed that signed consent will be obtained by US department once the pt goes for the procedure.
--- NOTE | 2023-10-16 19:55 | PC.NURSE ---
This RN entered orders as specified by Dr Meyer: PT/INR, PTT, Platelet count, NPO midnight.
[2023-10-16] MEDS: PRAVASTATIN SODIUM 20 MG TABLET PO (20:12)
[2023-10-16] MEDS: ACETAMINOPHEN 325 MG TABLET 650 MG PO (20:12)
[2023-10-16] MEDS: SERTRALINE HCL 50 MG TABLET 100 MG PO (20:12)
[2023-10-17] VITALS (16 sets, daily range): BP systolic 109–134; BP diastolic 54–87; PULSE 64–107; RESP 18–20; TEMP 35.7–36.4; O2SAT 91–96
[2023-10-17 06:01] LABS: Platelet Count Result 236 k/mm3 (150-375)
[2023-10-17 06:13] LABS: INR 2.1; Prothrombin Time 24.8 Seconds (11.1-14.7)
[2023-10-17 06:14] LABS: Partial Thromboplastin Time 42.8 Seconds (22.3-36.8)
[2023-10-17 06:19] LABS: Anion Gap -2 mmol/L (8-16); Blood Urea Nitrogen 19 mg/dL (7-17); Calcium 10.1 mg/dL (8.4-10.2); Carbon Dioxide 37 mmol/L (22-30); Chloride 103 mmol/L (98-107); Estimated CRCL calculation 42 ml/min; Estimated Glomerular Filt Rate 60; Glucose 125 mg/dL (65-110); Potassium 3.5 mmol/L (3.4-5.0); Sodium 138 mmol/L (137-145)
[2023-10-17] MEDS: UMECLIDINIUM BROMIDE 62.5 MCG ELLIPTA 1 PUFF INHALATION (08:22)
[2023-10-17] MEDS: FLUTICASONE/SALMETEROL 115-21 MCG INHALER 1 PUFF 2 PUFF INHALATION ×2 (08:22→20:45)
[2023-10-17] MEDS: APIXABAN 5 MG TABLET 10 MG PO ×2 (09:23→20:16)
[2023-10-17] MEDS: CIPROFLOXACIN 500 MG TAB PO ×2 (09:23→20:16)
[2023-10-17] MEDS: FAMOTIDINE 20 MG TABLET PO ×2 (09:24→20:16)
[2023-10-17] MEDS: FUROSEMIDE 40 MG TABLET PO (09:24)
[2023-10-17] MEDS: SACUBITRIL/VALSARTAN 12-13 MG TABLET 1 TAB PO ×2 (09:24→20:16)
[2023-10-17] MEDS: METOPROLOL SUCCINATE EXT REL 50 MG TABCR PO (09:24)
--- NOTE | 2023-10-17 10:10 | PM.IMPN ---
Progress Note: A&P Assessment and Plan (1) CHF (congestive heart failure): Code(s): I50.9 - Heart failure, unspecified Status: Acute (2) Atrial flutter by electrocardiogram: Code(s): I48.92 - Unspecified atrial flutter Status: Acute (3) Deep vein thrombosis (DVT): Qualifiers: DVT location: lower extremity Affected thrombotic vein of extremity: femoral Chronicity: acute Laterality: left Qualified Code(s): I82.412 - Acute embolism and thrombosis of left femoral vein Code(s): I82.409 - Acute embolism and thrombosis of unspecified deep veins of unspecified lower extremity Status: Acute (4) Essential (primary) hypertension: Code(s): I10 - Essential (primary) hypertension Status: Acute (5) Prediabetes: Code(s): R73.03 - Prediabetes Status: Acute (6) Dementia: Code(s): F03.90 - Unspecified dementia, unspecified severity, without behavioral disturbance, psychotic disturbance, mood disturbance, and anxiety Status: Acute (7) UTI (urinary tract infection): Code(s): N39.0 - Urinary tract infection, site not specified Status: Acute Plan 83 y/o female with PMHx of COPD and HTN here for SOB and bilateral leg swelling likely chf related. Chest x-ray with 7 point diffuse bilateral lung disease with lower lung predominance which could represent either [id number] pulmonary edema or pneumonia. Small left pleural effusion. Repeat chest x-ray on 10/16/2023 with moderate left pleural effusion and minimal right pleural effusion probable [id number] pulmonary edema. Still needing 3 L of oxygen. Cardiology consulted. Echo with EF 55-60% right ventricular chamber dimension moderately enlarged systolic function reduced left atrium severely enlarged right atrium severely enlarged moderate tricuspid regurgitation severe pulmonary hypertension Patient started on Entresto 10/13 tolerating well. Plan for thoracentesis however Eliquis was not held and could not be done until Friday now. Chest x-ray with improvement in her effusion and edema may just need to continue diuresis will hold off on thoracentesis Atrial flutter with rapid ventricular rate on arrival. Started on metoprolol and Eliquis Acute DVT revealed on left femoral and popliteal vein on Eliquis Hypoxia on oxygen supplementation taper as tolerated Type 2 diabetes Hypertension [facility] resident Suspected UTI UA positive urine culture mixed genital shelby on oral Cipro History of dementia and pleasantly confused DVT prophylaxis on Eliquis Code status full code Subjective Date/time seen: 10/17/23 10:10 Interval history: 83 y/o female with PMHx of COPD and HTN here for SOB and bilateral leg swelling likely chf related. Chest x-ray with 7 point diffuse bilateral lung disease with lower lung predominance which could represent either [id number] pulmonary edema or pneumonia. Small left pleural effusion. Repeat chest x-ray on 10/16/2023 with moderate left pleural effusion and minimal right pleural effusion probable [id number] pulmonary edema. Still needing 3 L of oxygen. Cardiology consulted. Echo with EF 55-60% right ventricular chamber dimension moderately enlarged systolic function reduced left atrium severely enlarged right atrium severely enlarged moderate tricuspid regurgitation severe pulmonary hypertension Patient started on Entresto 10/13 tolerating well. Plan for thoracentesis however Eliquis was not held and could not be done until Friday now. Chest x-ray with improvement in her effusion and edema may just need to continue diuresis will hold off on thoracentesis Atrial flutter with rapid ventricular rate on arrival. Started on metoprolol and Eliquis Acute DVT revealed on left femoral and popliteal vein on Eliquis Type 2 diabetes Hypertension [facility] resident Suspected UTI UA positive urine culture mixed genital shelby on oral Cipro History of dementia and pleasantly con
[2023-10-17] MEDS: FUROSEMIDE INJ 40 MG/4 ML VIAL 20 MG IV PUSH (14:03)
[2023-10-17] MEDS: SERTRALINE HCL 50 MG TABLET 100 MG PO (20:16)
[2023-10-17] MEDS: PRAVASTATIN SODIUM 20 MG TABLET PO (20:16)
[2023-10-18] VITALS (12 sets, daily range): BP systolic 119–126; BP diastolic 70–77; PULSE 87–109; RESP 16–18; TEMP 36.3–36.7; O2SAT 95–100
[2023-10-18 05:07] LABS: Basophils Percent Auto 0.2 % (0.2-1.2); Eosinophils Absolute Auto 0.3 K/mm3 (0-0.3); Eosinophils Percent Auto 2.9 % (0-4.4); Hematocrit 38.8 % (37.0-47.0); Hemoglobin 11.7 g/dL (12.0-15.0); Immature Granulocyte Absolute 0.03 K/mm3 (0.00-0.031); Immature Granulocyte Percent A 0.3 % (0-0.5); Lymphocytes Absolute Auto 1.32 K/mm3 (0.9-3.2); Lymphocytes Percent Auto 15.4 % (18.3-44.2); Mean Corpuscular HGB Conc 30.2 g/dl (32-36); Mean Platelet Volume 9.6 fl (7.4-10.4); Monocytes Percent Auto 11.3 % (2.6-8.5); Neutrophils Percent Auto 69.9 % (45.5-73.1); Platelet Count Result 234 k/mm3 (150-375); Red Blood Count 4.04 M/mm3 (4.2-5.4); Red Cell Distribution Width 17.8 % (11.5-14.5); White Blood Count 8.6 K/mm3 (4.5-10.0)
[2023-10-18 05:16] LABS: Alanine Aminotransferase 27 U/L (6-35); Albumin Level 3.1 g/dL (3.5-5.1); Alkaline Phosphatase 94 U/L (38-126); Anion Gap 2 mmol/L (8-16); Aspartate Amino Transferase 26 U/L (14-36); Bilirubin,Total 0.8 mg/dL (0.2-1.3); Blood Urea Nitrogen 20 mg/dL (7-17); Calcium 10.2 mg/dL (8.4-10.2); Carbon Dioxide 33 mmol/L (22-30); Chloride 103 mmol/L (98-107); Estimated CRCL calculation 38 ml/min; Estimated Glomerular Filt Rate 53; Glucose 132 mg/dL (65-110); Potassium 3.5 mmol/L (3.4-5.0); Sodium 138 mmol/L (137-145)
[2023-10-18] MEDS: UMECLIDINIUM BROMIDE 62.5 MCG ELLIPTA 1 PUFF INHALATION (07:10)
[2023-10-18] MEDS: FLUTICASONE/SALMETEROL 115-21 MCG INHALER 1 PUFF 2 PUFF INHALATION ×2 (07:10→20:49)
[2023-10-18] MEDS: APIXABAN 5 MG TABLET 10 MG PO ×2 (08:49→20:26)
[2023-10-18] MEDS: CIPROFLOXACIN 500 MG TAB PO ×2 (08:49→20:25)
[2023-10-18] MEDS: SACUBITRIL/VALSARTAN 12-13 MG TABLET 1 TAB PO ×2 (08:50→20:25)
[2023-10-18] MEDS: FAMOTIDINE 20 MG TABLET PO ×2 (08:50→20:25)
[2023-10-18] MEDS: FUROSEMIDE 40 MG TABLET PO (08:50)
[2023-10-18] MEDS: METOPROLOL SUCCINATE EXT REL 50 MG TABCR PO (08:50)
[2023-10-18] MEDS: POTASSIUM CHLORIDE 20 MEQ PACKET (FOR LIQUID) PO (08:51)
--- NOTE | 2023-10-18 16:05 | PM.IMPN ---
Progress Note: A&P Assessment and Plan (1) CHF (congestive heart failure): Code(s): I50.9 - Heart failure, unspecified Status: Acute (2) Atrial flutter by electrocardiogram: Code(s): I48.92 - Unspecified atrial flutter Status: Acute (3) Deep vein thrombosis (DVT): Qualifiers: DVT location: lower extremity Affected thrombotic vein of extremity: femoral Chronicity: acute Laterality: left Qualified Code(s): I82.412 - Acute embolism and thrombosis of left femoral vein Code(s): I82.409 - Acute embolism and thrombosis of unspecified deep veins of unspecified lower extremity Status: Acute (4) Essential (primary) hypertension: Code(s): I10 - Essential (primary) hypertension Status: Acute (5) Prediabetes: Code(s): R73.03 - Prediabetes Status: Acute (6) Dementia: Code(s): F03.90 - Unspecified dementia, unspecified severity, without behavioral disturbance, psychotic disturbance, mood disturbance, and anxiety Status: Acute (7) UTI (urinary tract infection): Code(s): N39.0 - Urinary tract infection, site not specified Status: Acute Plan 83 y/o female with PMHx of COPD and HTN here for SOB and bilateral leg swelling likely chf related. Chest x-ray with 7 point diffuse bilateral lung disease with lower lung predominance which could represent either epxl-ov-runscbbh pulmonary edema or pneumonia. Small left pleural effusion. Repeat chest x-ray on 10/16/2023 with moderate left pleural effusion and minimal right pleural effusion probable nxqz-sd-jirioykp pulmonary edema. Still needing 3 L of oxygen. Cardiology consulted. Echo with EF 55-60% right ventricular chamber dimension moderately enlarged systolic function reduced left atrium severely enlarged right atrium severely enlarged moderate tricuspid regurgitation severe pulmonary hypertension Patient started on Entresto 10/13 tolerating well. Plan for thoracentesis however Eliquis was not held and could not be done until Friday now. Chest x-ray with improvement in her effusion and edema may just need to continue diuresis will hold off on thoracentesis Atrial flutter with rapid ventricular rate on arrival. Started on metoprolol and Eliquis Acute DVT revealed on left femoral and popliteal vein on Eliquis Hypoxia on oxygen supplementation taper as tolerated Type 2 diabetes Hypertension care home resident Suspected UTI UA positive urine culture mixed genital shelby on oral Cipro History of dementia and pleasantly confused DVT prophylaxis on Eliquis Code status full code Subjective Date/time seen: 10/18/23 16:05 Interval history: 83 y/o female with PMHx of COPD and HTN here for SOB and bilateral leg swelling likely chf related. Chest x-ray with 7 point diffuse bilateral lung disease with lower lung predominance which could represent either gznu-ws-amrsimqv pulmonary edema or pneumonia. Small left pleural effusion. Repeat chest x-ray on 10/16/2023 with moderate left pleural effusion and minimal right pleural effusion probable qnrt-at-yfqrmsrl pulmonary edema. Still needing 3 L of oxygen. Cardiology consulted. Echo with EF 55-60% right ventricular chamber dimension moderately enlarged systolic function reduced left atrium severely enlarged right atrium severely enlarged moderate tricuspid regurgitation severe pulmonary hypertension Patient started on Entresto 10/13 tolerating well. Plan for thoracentesis however Eliquis was not held and could not be done until Friday now. Chest x-ray with improvement in her effusion and edema may just need to continue diuresis will hold off on thoracentesis Atrial flutter with rapid ventricular rate on arrival. Started on metoprolol and Eliquis Acute DVT revealed on left femoral and popliteal vein on Eliquis Type 2 diabetes Hypertension care home resident Suspected UTI UA positive urine culture mixed genital shelby on oral Cipro History of dementia and pleasantly con
[2023-10-18] MEDS: SERTRALINE HCL 50 MG TABLET 100 MG PO (20:25)
[2023-10-18] MEDS: PRAVASTATIN SODIUM 20 MG TABLET PO (20:25)
[2023-10-19] VITALS (13 sets, daily range): BP systolic 111–134; BP diastolic 55–69; PULSE 92–107; RESP 17–20; TEMP 36.4–36.9; O2SAT 90–100
[2023-10-19 06:09] LABS: Basophils Percent Auto 0.4 % (0.2-1.2); Eosinophils Absolute Auto 0.2 K/mm3 (0-0.3); Eosinophils Percent Auto 2.7 % (0-4.4); Hematocrit 40.5 % (37.0-47.0); Immature Granulocyte Absolute 0.04 K/mm3 (0.00-0.031); Immature Granulocyte Percent A 0.5 % (0-0.5); Lymphocytes Absolute Auto 1.37 K/mm3 (0.9-3.2); Lymphocytes Percent Auto 18.2 % (18.3-44.2); Mean Corpuscular HGB Conc 29.6 g/dl (32-36); Mean Corpuscular Hemoglobin 29.3 pg (26-34); Mean Corpuscular Volume 98.8 fl (80-100); Mean Platelet Volume 9.9 fl (7.4-10.4); Monocytes Absolute Auto 0.9 K/mm3 (0.1-0.6); Neutrophils Percent Auto 66.2 % (45.5-73.1); Platelet Count Result 241 k/mm3 (150-375); Red Cell Distribution Width 17.6 % (11.5-14.5); White Blood Count 7.5 K/mm3 (4.5-10.0)
[2023-10-19 07:07] LABS: Ovalocytes 1+; Platelet Estimate Adequate (Adequate); Schistocytes Rare
[2023-10-19] MEDS: UMECLIDINIUM BROMIDE 62.5 MCG ELLIPTA 1 PUFF INHALATION (09:06)
[2023-10-19] MEDS: FLUTICASONE/SALMETEROL 115-21 MCG INHALER 1 PUFF 2 PUFF INHALATION ×2 (09:07→19:55)
[2023-10-19 09:17] LABS: Alanine Aminotransferase 29 U/L (6-35); Albumin Level 3.2 g/dL (3.5-5.1); Alkaline Phosphatase 86 U/L (38-126); Anion Gap 5 mmol/L (8-16); Aspartate Amino Transferase 30 U/L (14-36); Bilirubin,Total 0.8 mg/dL (0.2-1.3); Blood Urea Nitrogen 18 mg/dL (7-17); Calcium 10.4 mg/dL (8.4-10.2); Carbon Dioxide 28 mmol/L (22-30); Chloride 104 mmol/L (98-107); Estimated CRCL calculation 46 ml/min; Estimated Glomerular Filt Rate > 60; Glucose 114 mg/dL (65-110); Magnesium 2.2 mg/dL (1.6-2.3); Potassium 3.6 mmol/L (3.4-5.0); Sodium 137 mmol/L (137-145)
[2023-10-19] MEDS: APIXABAN 5 MG TABLET 10 MG PO (09:18)
[2023-10-19] MEDS: SACUBITRIL/VALSARTAN 12-13 MG TABLET 1 TAB PO ×2 (09:18→20:21)
[2023-10-19] MEDS: CIPROFLOXACIN 500 MG TAB PO ×2 (09:19→20:21)
[2023-10-19] MEDS: FUROSEMIDE 40 MG TABLET PO (09:19)
[2023-10-19] MEDS: METOPROLOL SUCCINATE EXT REL 50 MG TABCR PO (09:19)
[2023-10-19] MEDS: FAMOTIDINE 20 MG TABLET PO ×2 (09:19→20:21)
--- NOTE | 2023-10-19 14:26 | PM.IMPN ---
Progress Note: A&P Assessment and Plan (1) CHF (congestive heart failure): Code(s): I50.9 - Heart failure, unspecified Status: Acute (2) Atrial flutter by electrocardiogram: Code(s): I48.92 - Unspecified atrial flutter Status: Acute (3) Deep vein thrombosis (DVT): Qualifiers: DVT location: lower extremity Affected thrombotic vein of extremity: femoral Chronicity: acute Laterality: left Qualified Code(s): I82.412 - Acute embolism and thrombosis of left femoral vein Code(s): I82.409 - Acute embolism and thrombosis of unspecified deep veins of unspecified lower extremity Status: Acute (4) Essential (primary) hypertension: Code(s): I10 - Essential (primary) hypertension Status: Acute (5) Prediabetes: Code(s): R73.03 - Prediabetes Status: Acute (6) Dementia: Code(s): F03.90 - Unspecified dementia, unspecified severity, without behavioral disturbance, psychotic disturbance, mood disturbance, and anxiety Status: Acute (7) UTI (urinary tract infection): Code(s): N39.0 - Urinary tract infection, site not specified Status: Acute Plan 83 y/o female with PMHx of COPD and HTN here for SOB and bilateral leg swelling likely chf related. Chest x-ray with 7 point diffuse bilateral lung disease with lower lung predominance which could represent either bumc-or-keaplnzn pulmonary edema or pneumonia. Small left pleural effusion. Repeat chest x-ray on 10/16/2023 with moderate left pleural effusion and minimal right pleural effusion probable vacp-hn-zkdkohte pulmonary edema. Still needing 3 L of oxygen. Cardiology consulted. Echo with EF 55-60% right ventricular chamber dimension moderately enlarged systolic function reduced left atrium severely enlarged right atrium severely enlarged moderate tricuspid regurgitation severe pulmonary hypertension Patient started on Entresto 10/13 tolerating well. Plan for thoracentesis however Eliquis was not held and could not be done until Friday now. Chest x-ray with improvement in her effusion and edema may just need to continue diuresis will hold off on thoracentesis Chest x-ray repeat 10/19/2023 with persistent left pleural effusion moderate. Will plan for thoracentesis in a.m. hold Eliquis Atrial flutter with rapid ventricular rate on arrival. Started on metoprolol and Eliquis Acute DVT revealed on left femoral and popliteal vein on Eliquis Hypoxia on oxygen supplementation taper as tolerated Type 2 diabetes Hypertension care home resident Suspected UTI UA positive urine culture mixed genital shelby on oral Cipro History of dementia and pleasantly confused DVT prophylaxis on Eliquis Code status full code Subjective Date/time seen: 10/19/23 14:26 Interval history: 83 y/o female with PMHx of COPD and HTN here for SOB and bilateral leg swelling likely chf related. Chest x-ray with 7 point diffuse bilateral lung disease with lower lung predominance which could represent either nmbi-lj-uqhdynky pulmonary edema or pneumonia. Small left pleural effusion. Repeat chest x-ray on 10/16/2023 with moderate left pleural effusion and minimal right pleural effusion probable dmou-kx-ncnrxgmz pulmonary edema. Still needing 3 L of oxygen. Cardiology consulted. Echo with EF 55-60% right ventricular chamber dimension moderately enlarged systolic function reduced left atrium severely enlarged right atrium severely enlarged moderate tricuspid regurgitation severe pulmonary hypertension Patient started on Entresto 10/13 tolerating well. Plan for thoracentesis however Eliquis was not held and could not be done until Friday now. Chest x-ray with improvement in her effusion and edema may just need to continue diuresis will hold off on thoracentesis Atrial flutter with rapid ventricular rate on arrival. Started on metoprolol and Eliquis Acute DVT revealed on left femoral and popliteal vein on Eliquis Type 2 diabetes Hypertension Nursing
--- NOTE | 2023-10-19 16:19 | PC.NURSE ---
Spoke to daughter (POA) in regards to plan for thoracentesis tomorrow. Consent to be signed tomorrow once radiologist is established.
[2023-10-19] MEDS: ACETAMINOPHEN 325 MG TABLET 650 MG PO (20:21)
[2023-10-19] MEDS: PRAVASTATIN SODIUM 20 MG TABLET PO (20:21)
[2023-10-19] MEDS: SERTRALINE HCL 50 MG TABLET 100 MG PO (20:21)
[2023-10-20] VITALS (15 sets, daily range): BP systolic 105–140; BP diastolic 44–85; PULSE 86–116; RESP 18–20; TEMP 36.8; O2SAT 91–100
[2023-10-20 06:02] LABS: Basophils Percent Auto 0.4 % (0.2-1.2); Eosinophils Absolute Auto 0.2 K/mm3 (0-0.3); Eosinophils Percent Auto 2.6 % (0-4.4); Hematocrit 41.5 % (37.0-47.0); Hemoglobin 12.2 g/dL (12.0-15.0); Immature Granulocyte Absolute 0.03 K/mm3 (0.00-0.031); Immature Granulocyte Percent A 0.4 % (0-0.5); Lymphocytes Absolute Auto 1.32 K/mm3 (0.9-3.2); Lymphocytes Percent Auto 17.3 % (18.3-44.2); Mean Corpuscular HGB Conc 29.4 g/dl (32-36); Mean Corpuscular Volume 98.8 fl (80-100); Monocytes Absolute Auto 0.9 K/mm3 (0.1-0.6); Monocytes Percent Auto 11.7 % (2.6-8.5); Neutrophils Absolute Auto 5.2 K/mm3 (1.3-6.7); Neutrophils Percent Auto 67.6 % (45.5-73.1); Platelet Count Result 245 k/mm3 (150-375); Red Cell Distribution Width 17.5 % (11.5-14.5); White Blood Count 7.6 K/mm3 (4.5-10.0)
[2023-10-20 06:09] LABS: Alanine Aminotransferase 28 U/L (6-35); Albumin Level 3.2 g/dL (3.5-5.1); Alkaline Phosphatase 85 U/L (38-126); Anion Gap 1 mmol/L (8-16); Aspartate Amino Transferase 27 U/L (14-36); Bilirubin,Total 0.9 mg/dL (0.2-1.3); Blood Urea Nitrogen 19 mg/dL (7-17); Calcium 10.5 mg/dL (8.4-10.2); Carbon Dioxide 33 mmol/L (22-30); Chloride 104 mmol/L (98-107); Estimated CRCL calculation 42 ml/min; Estimated Glomerular Filt Rate 60; Glucose 109 mg/dL (65-110); Magnesium 2.3 mg/dL (1.6-2.3); Sodium 138 mmol/L (137-145)
[2023-10-20 06:45] LABS: Anisocytosis 1+; Ovalocytes 1+; Platelet Estimate Adequate (Adequate); Schistocytes None Seen
[2023-10-20] MEDS: FLUTICASONE/SALMETEROL 115-21 MCG INHALER 1 PUFF 2 PUFF INHALATION (07:19)
[2023-10-20] MEDS: UMECLIDINIUM BROMIDE 62.5 MCG ELLIPTA 1 PUFF INHALATION (07:19)
[2023-10-20 08:42] LABS: Mean Platelet Volume 9.6 fl (7.4-10.4); Platelet Count Result 233 k/mm3 (150-375)
[2023-10-20 09:18] LABS: INR 1.7; Prothrombin Time 20.5 Seconds (11.1-14.7)
[2023-10-20 09:19] LABS: Partial Thromboplastin Time 34.3 Seconds (22.3-36.8)
--- NOTE | 2023-10-20 11:08 | PCNWS ---
Weekly nutritional screen. Patient is tolerating current diet with adequate intake. No weight loss reported. No nutritional needs at this time.
[2023-10-20] MEDS: IPRATROPIUM 0.5 MG/ALBUTEROL SULFATE 2.5 MG AMPUL.NEB 3 ML INHALATION (11:09)
[2023-10-20 14:25] LABS: pH Pleural Fluid > 7.500 (7.210-7.500)
--- NOTE | 2023-10-20 15:42 | PM.IMPN ---
Progress Note: A&P Assessment and Plan (1) CHF (congestive heart failure): Code(s): I50.9 - Heart failure, unspecified Status: Acute (2) Atrial flutter by electrocardiogram: Code(s): I48.92 - Unspecified atrial flutter Status: Acute (3) Deep vein thrombosis (DVT): Qualifiers: DVT location: lower extremity Affected thrombotic vein of extremity: femoral Chronicity: acute Laterality: left Qualified Code(s): I82.412 - Acute embolism and thrombosis of left femoral vein Code(s): I82.409 - Acute embolism and thrombosis of unspecified deep veins of unspecified lower extremity Status: Acute (4) Essential (primary) hypertension: Code(s): I10 - Essential (primary) hypertension Status: Acute (5) Prediabetes: Code(s): R73.03 - Prediabetes Status: Acute (6) Dementia: Code(s): F03.90 - Unspecified dementia, unspecified severity, without behavioral disturbance, psychotic disturbance, mood disturbance, and anxiety Status: Acute (7) UTI (urinary tract infection): Code(s): N39.0 - Urinary tract infection, site not specified Status: Acute Plan 83 y/o female with PMHx of COPD and HTN here for SOB and bilateral leg swelling likely chf related. Chest x-ray with 7 point diffuse bilateral lung disease with lower lung predominance which could represent either wwmp-gl-bfyvzjsy pulmonary edema or pneumonia. Small left pleural effusion. Repeat chest x-ray on 10/16/2023 with moderate left pleural effusion and minimal right pleural effusion probable galc-ky-qnhbbfmf pulmonary edema. Still needing 3 L of oxygen. Cardiology consulted. Echo with EF 55-60% right ventricular chamber dimension moderately enlarged systolic function reduced left atrium severely enlarged right atrium severely enlarged moderate tricuspid regurgitation severe pulmonary hypertension Patient started on Entresto 10/13 tolerating well. Plan for thoracentesis however Eliquis was not held and could not be done until Friday now. Chest x-ray with improvement in her effusion and edema may just need to continue diuresis will hold off on thoracentesis Chest x-ray repeat 10/19/2023 with persistent left pleural effusion moderate. Status post thoracentesis with removal of 660 mL of yellowish fluid. Follow pleural fluid analysis. Resume Eliquis this evening Atrial flutter with rapid ventricular rate on arrival. Started on metoprolol and Eliquis Acute DVT revealed on left femoral and popliteal vein on Eliquis Hypoxia on oxygen supplementation taper as tolerated Type 2 diabetes Hypertension snf resident Suspected UTI UA positive urine culture mixed genital shelby on oral Cipro History of dementia and pleasantly confused DVT prophylaxis on Eliquis Code status full code Subjective Date/time seen: 10/20/23 15:42 Interval history: 83 y/o female with PMHx of COPD and HTN here for SOB and bilateral leg swelling likely chf related. Chest x-ray with 7 point diffuse bilateral lung disease with lower lung predominance which could represent either ssra-ou-jbupxiwd pulmonary edema or pneumonia. Small left pleural effusion. Repeat chest x-ray on 10/16/2023 with moderate left pleural effusion and minimal right pleural effusion probable fkuc-oe-swkhmzhq pulmonary edema. Still needing 3 L of oxygen. Cardiology consulted. Echo with EF 55-60% right ventricular chamber dimension moderately enlarged systolic function reduced left atrium severely enlarged right atrium severely enlarged moderate tricuspid regurgitation severe pulmonary hypertension Patient started on Entresto 10/13 tolerating well. Plan for thoracentesis however Eliquis was not held and could not be done until Friday now. Chest x-ray with improvement in her effusion and edema may just need to continue diuresis will hold off on thoracentesis Atrial flutter with rapid ventricular rate on arrival. Started on metoprolol and Eliquis Acute DVT revealed on l
[2023-10-20] MEDS: METOPROLOL SUCCINATE EXT REL 50 MG TABCR PO (17:07)
[2023-10-20] MEDS: FUROSEMIDE 40 MG TABLET PO (17:07)
[2023-10-20] MEDS: POTASSIUM CHLORIDE 20 MEQ PACKET (FOR LIQUID) PO (17:07)
[2023-10-20 20:35] LABS: Lactate Dehydrogenase 266 U/L (120-246)
[2023-10-20 20:52] LABS: Appearance Pleural Fluid Clear (Clear); Color Pleural Fluid Yellow (Colorless); Lymphocytes Pleural Fluid 64 %; Neutrophils Pleural Fluid 8 % (0-25); Pleural fluid source Pleural fluid
[2023-10-20] MEDS: PRAVASTATIN SODIUM 20 MG TABLET PO (20:52)
[2023-10-20] MEDS: SACUBITRIL/VALSARTAN 12-13 MG TABLET 1 TAB PO (20:52)
[2023-10-20] MEDS: SERTRALINE HCL 50 MG TABLET 100 MG PO (20:52)
[2023-10-20] MEDS: CIPROFLOXACIN 500 MG TAB PO (20:52)
[2023-10-20] MEDS: ACETAMINOPHEN 325 MG TABLET 650 MG PO (20:52)
[2023-10-20 20:53] LABS: Mesothelial Cells Pleural Flui 3 %; Monocytes Pleural Fluid 25 %
[2023-10-20] MEDS: FAMOTIDINE 20 MG TABLET PO (20:53)
[2023-10-21] VITALS (17 sets, daily range): BP systolic 108–136; BP diastolic 53–64; PULSE 88–109; RESP 16–20; TEMP 36.4–36.7; O2SAT 91–99
[2023-10-21 05:57] LABS: Basophils Percent Auto 0.2 % (0.2-1.2); Eosinophils Absolute Auto 0.2 K/mm3 (0-0.3); Eosinophils Percent Auto 2.6 % (0-4.4); Hematocrit 38.8 % (37.0-47.0); Hemoglobin 11.3 g/dL (12.0-15.0); Immature Granulocyte Absolute 0.02 K/mm3 (0.00-0.031); Immature Granulocyte Percent A 0.3 % (0-0.5); Lymphocytes Absolute Auto 0.98 K/mm3 (0.9-3.2); Lymphocytes Percent Auto 15.1 % (18.3-44.2); Mean Corpuscular HGB Conc 29.1 g/dl (32-36); Mean Corpuscular Hemoglobin 28.8 pg (26-34); Mean Platelet Volume 10.1 fl (7.4-10.4); Monocytes Absolute Auto 0.8 K/mm3 (0.1-0.6); Monocytes Percent Auto 12.5 % (2.6-8.5); Neutrophils Absolute Auto 4.5 K/mm3 (1.3-6.7); Neutrophils Percent Auto 69.3 % (45.5-73.1); Platelet Count Result 228 k/mm3 (150-375); Red Blood Count 3.92 M/mm3 (4.2-5.4); Red Cell Distribution Width 17.7 % (11.5-14.5); White Blood Count 6.5 K/mm3 (4.5-10.0)
[2023-10-21 07:49] LABS: Alanine Aminotransferase 29 U/L (6-35); Albumin Level 2.9 g/dL (3.5-5.1); Alkaline Phosphatase 76 U/L (38-126); Anion Gap 3 mmol/L (8-16); Aspartate Amino Transferase 30 U/L (14-36); Bilirubin,Total 0.7 mg/dL (0.2-1.3); Blood Urea Nitrogen 19 mg/dL (7-17); Calcium 10.4 mg/dL (8.4-10.2); Carbon Dioxide 28 mmol/L (22-30); Chloride 107 mmol/L (98-107); Estimated CRCL calculation 46 ml/min; Estimated Glomerular Filt Rate > 60; Glucose 97 mg/dL (65-110); Magnesium 2.4 mg/dL (1.6-2.3); Potassium 3.6 mmol/L (3.4-5.0); Sodium 138 mmol/L (137-145)
[2023-10-21] MEDS: UMECLIDINIUM BROMIDE 62.5 MCG ELLIPTA 1 PUFF INHALATION (07:51)
[2023-10-21] MEDS: FLUTICASONE/SALMETEROL 115-21 MCG INHALER 1 PUFF 2 PUFF INHALATION ×2 (07:51→20:16)
[2023-10-21] MEDS: APIXABAN 5 MG TABLET PO ×2 (08:57→21:30)
[2023-10-21] MEDS: METOPROLOL SUCCINATE EXT REL 50 MG TABCR PO (08:57)
[2023-10-21] MEDS: CIPROFLOXACIN 500 MG TAB PO ×2 (08:57→21:29)
[2023-10-21] MEDS: FAMOTIDINE 20 MG TABLET PO ×2 (08:57→21:30)
[2023-10-21] MEDS: FUROSEMIDE 40 MG TABLET PO (08:57)
[2023-10-21] MEDS: SACUBITRIL/VALSARTAN 12-13 MG TABLET 1 TAB PO ×2 (08:57→21:30)
--- NOTE | 2023-10-21 12:09 | PM.IMPN ---
Progress Note: A&P Assessment and Plan (1) CHF (congestive heart failure): Code(s): I50.9 - Heart failure, unspecified Status: Acute (2) Atrial flutter by electrocardiogram: Code(s): I48.92 - Unspecified atrial flutter Status: Acute (3) Deep vein thrombosis (DVT): Qualifiers: DVT location: lower extremity Affected thrombotic vein of extremity: femoral Chronicity: acute Laterality: left Qualified Code(s): I82.412 - Acute embolism and thrombosis of left femoral vein Code(s): I82.409 - Acute embolism and thrombosis of unspecified deep veins of unspecified lower extremity Status: Acute (4) Essential (primary) hypertension: Code(s): I10 - Essential (primary) hypertension Status: Acute (5) Prediabetes: Code(s): R73.03 - Prediabetes Status: Acute (6) Dementia: Code(s): F03.90 - Unspecified dementia, unspecified severity, without behavioral disturbance, psychotic disturbance, mood disturbance, and anxiety Status: Acute (7) UTI (urinary tract infection): Code(s): N39.0 - Urinary tract infection, site not specified Status: Acute Plan 83 y/o female with PMHx of COPD and HTN here for SOB and bilateral leg swelling likely chf related. Chest x-ray with 7 point diffuse bilateral lung disease with lower lung predominance which could represent either unoy-ra-yxfqxazw pulmonary edema or pneumonia. Small left pleural effusion. Repeat chest x-ray on 10/16/2023 with moderate left pleural effusion and minimal right pleural effusion probable xelg-eu-nozrsjep pulmonary edema. Still needing 3 L of oxygen. Cardiology consulted. Echo with EF 55-60% right ventricular chamber dimension moderately enlarged systolic function reduced left atrium severely enlarged right atrium severely enlarged moderate tricuspid regurgitation severe pulmonary hypertension Patient started on Entresto 10/13 tolerating well. Plan for thoracentesis however Eliquis was not held and could not be done until Friday now. Chest x-ray with improvement in her effusion and edema may just need to continue diuresis will hold off on thoracentesis Chest x-ray repeat 10/19/2023 with persistent left pleural effusion moderate. Status post thoracentesis with removal of 660 mL of yellowish fluid on 10/20/2023. Pleural fluid analysis so far with predominantly lymphocytic fluid. Await for further pleural fluid analysis potentially transudative. Will recheck chest x-ray and monitor and continue diuresis Atrial flutter with rapid ventricular rate on arrival. Started on metoprolol and Eliquis Acute DVT revealed on left femoral and popliteal vein on Eliquis Hypoxia on oxygen supplementation taper as tolerated oxygen requirements stable Type 2 diabetes Hypertension longterm resident Suspected UTI UA positive urine culture mixed genital shelby on oral Cipro History of dementia and pleasantly confused DVT prophylaxis on Eliquis Code status full code Subjective Date/time seen: 10/21/23 12:09 Interval history: 83 y/o female with PMHx of COPD and HTN here for SOB and bilateral leg swelling likely chf related. Chest x-ray with 7 point diffuse bilateral lung disease with lower lung predominance which could represent either miav-yy-bgrayrar pulmonary edema or pneumonia. Small left pleural effusion. Repeat chest x-ray on 10/16/2023 with moderate left pleural effusion and minimal right pleural effusion probable dzbm-dl-koujgpah pulmonary edema. Still needing 3 L of oxygen. Cardiology consulted. Echo with EF 55-60% right ventricular chamber dimension moderately enlarged systolic function reduced left atrium severely enlarged right atrium severely enlarged moderate tricuspid regurgitation severe pulmonary hypertension Patient started on Entresto 10/13 tolerating well. Plan for thoracentesis however Eliquis was not held and could not be done until Friday now. Chest x-ray with improvement in her effusion and edema ma
[2023-10-21 12:45] LABS: NT Pro B Type Natriuretic Pept 9440 pg/mL (19.9-100)
[2023-10-21] MEDS: FUROSEMIDE INJ 40 MG/4 ML VIAL IV PUSH (16:11)
[2023-10-21] MEDS: SERTRALINE HCL 50 MG TABLET 100 MG PO (21:29)
[2023-10-21] MEDS: PRAVASTATIN SODIUM 20 MG TABLET PO (21:30)
[2023-10-21] MEDS: MICONAZOLE NITRATE 2% CREAM 30 GM TUBE 1 APPLIC TOPICAL (22:00)
[2023-10-22] VITALS (13 sets, daily range): BP systolic 113–120; BP diastolic 58–66; PULSE 93–113; RESP 16–21; TEMP 36.4–36.8; O2SAT 90–98
[2023-10-22 05:41] LABS: Basophils Percent Auto 0.4 % (0.2-1.2); Eosinophils Absolute Auto 0.2 K/mm3 (0-0.3); Eosinophils Percent Auto 2.6 % (0-4.4); Hematocrit 38.7 % (37.0-47.0); Hemoglobin 11.5 g/dL (12.0-15.0); Immature Granulocyte Absolute 0.04 K/mm3 (0.00-0.031); Immature Granulocyte Percent A 0.5 % (0-0.5); Lymphocytes Absolute Auto 1.32 K/mm3 (0.9-3.2); Lymphocytes Percent Auto 15.9 % (18.3-44.2); Mean Corpuscular HGB Conc 29.7 g/dl (32-36); Mean Corpuscular Hemoglobin 28.8 pg (26-34); Mean Corpuscular Volume 96.8 fl (80-100); Mean Platelet Volume 10.2 fl (7.4-10.4); Monocytes Absolute Auto 0.9 K/mm3 (0.1-0.6); Monocytes Percent Auto 10.7 % (2.6-8.5); Neutrophils Absolute Auto 5.8 K/mm3 (1.3-6.7); Neutrophils Percent Auto 69.9 % (45.5-73.1); Platelet Count Result 231 k/mm3 (150-375); Red Cell Distribution Width 17.2 % (11.5-14.5); White Blood Count 8.3 K/mm3 (4.5-10.0)
[2023-10-22 05:52] LABS: Alanine Aminotransferase 26 U/L (6-35); Alkaline Phosphatase 86 U/L (38-126); Anion Gap -2 mmol/L (4-12); Aspartate Amino Transferase 25 U/L (14-36); Bilirubin,Total 0.8 mg/dL (0.2-1.3); Blood Urea Nitrogen 20 mg/dL (7-17); Calcium 10.2 mg/dL (8.4-10.2); Carbon Dioxide 37 mmol/L (22-30); Chloride 101 mmol/L (98-107); Estimated CRCL calculation 41 ml/min; Estimated Glomerular Filt Rate 60; Glucose 109 mg/dL (65-110); Magnesium 2.2 mg/dL (1.6-2.3); Potassium 3.4 mmol/L (3.4-5.0); Sodium 136 mmol/L (137-145)
[2023-10-22] MEDS: FLUTICASONE/SALMETEROL 115-21 MCG INHALER 1 PUFF 2 PUFF INHALATION ×2 (07:10→20:37)
[2023-10-22] MEDS: UMECLIDINIUM BROMIDE 62.5 MCG ELLIPTA 1 PUFF INHALATION (07:10)
[2023-10-22] MEDS: SACUBITRIL/VALSARTAN 12-13 MG TABLET 1 TAB PO ×2 (08:31→21:50)
[2023-10-22] MEDS: CIPROFLOXACIN 500 MG TAB PO (08:31)
[2023-10-22] MEDS: APIXABAN 5 MG TABLET PO ×2 (08:31→21:50)
[2023-10-22] MEDS: METOPROLOL SUCCINATE EXT REL 50 MG TABCR PO (08:31)
[2023-10-22] MEDS: FAMOTIDINE 20 MG TABLET PO ×2 (08:31→21:50)
[2023-10-22] MEDS: POTASSIUM CHLORIDE 20 MEQ PACKET (FOR LIQUID) PO (08:31)
[2023-10-22] MEDS: FUROSEMIDE 40 MG TABLET PO ×2 (08:31→18:46)
--- NOTE | 2023-10-22 12:07 | PM.IMPN ---
Progress Note: A&P Assessment and Plan (1) CHF (congestive heart failure): Code(s): I50.9 - Heart failure, unspecified <Kathy Fowlerdangelo, Student - Last Filed: 10/22/23 14:44> Status: Acute <Kathy Price, Student - Last Filed: 10/22/23 14:44> Assessment and Plan: Patient has been having increasing pedal edema for the past few weeks. Patient was started on Lasix at [facility] but symptoms worsened CXR showing diffuse bilateral lung disease and small left pleural effusion. BNP 16,300. EKG as mentioned below COVID, Influenza and RSV PCR negative. Hypoxia most likely related to CHF. PNA felt less likely. Lasix IV started but BP soft now. Echo: right ventricular systolic dysfunction, mod-severe pHTN, and preserved LV function; EF of 55-60% Oxygen saturation not improving with lasix Repeat chest X-ray on 10/18 showed persistent left sided pleural effusion (also shown on chest X-ray on 10/15) Thoracentesis performed on 10/19, removed 660ml of yellowish fluid Pleural fluid culture shows no growth in 48hrs Pleural analysis labs show lymphocytic-dominant fluid Follow the remaining pleural analysis labs Continue monitoring daily weights, I&Os and blood pressure Continue Entresto and pravastatin Continue lasix 40mg BID <Kathy Fowlerdangelo, Student - Last Filed: 10/22/23 14:44> Patient has been having increasing pedal edema for the past few weeks. Patient was started on Lasix at [facility] but symptoms worsened CXR showing diffuse bilateral lung disease and small left pleural effusion. BNP 16,300. EKG as mentioned below COVID, Influenza and RSV PCR negative. Hypoxia most likely related to CHF. PNA felt less likely. Lasix IV started but BP soft now. Echo: right ventricular systolic dysfunction, mod-severe pHTN, and preserved LV function; EF of 55-60% Oxygen saturation not improving with lasix Repeat chest X-ray on 10/18 showed persistent left sided pleural effusion (also shown on chest X-ray on 10/15) Thoracentesis performed on 10/19, removed 660ml of yellowish fluid Pleural fluid culture shows no growth in 48hrs Pleural analysis labs show lymphocytic-dominant fluid Follow the remaining pleural analysis labs Continue monitoring daily weights, I&Os and blood pressure Continue Entresto and pravastatin Continue lasix 40mg po BID <Livan Mancia MD - Last Filed: 10/22/23 19:02> (2) Hypoxia: Code(s): R09.02 - Hypoxemia <Kathy Price Student - Last Filed: 10/22/23 14:44> Status: Acute <Kathy Price Student - Last Filed: 10/22/23 14:44> Assessment and Plan: Patient remains on 4L of NC after lasix therapy and thoracentesis Patient has also been tachycardic Obtain ABG Obtain CTA for possible PE, PNA, malignancy <Kathy Price Student - Last Filed: 10/22/23 14:44> Patient remains on 4L of NC after lasix therapy and thoracentesis Patient has also been tachycardic Obtain ABG Obtain CTA for possible PE, PNA, malignancy <Livan Mancia MD - Last Filed: 10/22/23 19:02> (3) UTI (urinary tract infection): Code(s): N39.0 - Urinary tract infection, site not specified <Katyh Price Student - Last Filed: 10/22/23 14:44> Status: Acute <Kathy Price Student - Last Filed: 10/22/23 14:44> Assessment and Plan: Suspected UTI with positive UA Urine culture shows mixed genital shelby Oral cipro started on 10/14 D/C cipro today 10/21 <Kathy Price Student - Last Filed: 10/22/23 14:44> Suspected UTI with positive UA Urine culture shows mixed genital shelby Oral cipro started on 10/14 D/C cipro today 10/21 <Livan Mancia MD - Last Filed: 10/22/23 19:02> (4) Atrial flutter by electrocardiogram: Code(s): I48.92 - Unspecified atrial flutter <Kathy Price Student - Last Filed: 10/22/23 14:44> Status: Acute <Kathy Price Student - Last Filed: 10/22/23 1
[2023-10-22 14:13] LABS: Alveolar/Arterial O2 Gradient 156.9 mmHg; Base Excess ABG 5.3 mEq/l (+/-2.0); Fractional Inspired Oxygen 38 %; HCO3 ABG 30.3 mEq/l (22.0-26.0); Oxygen Content ABG 15.8 %vol (16.0-22.0); Oxyhemoglobin 90.5 % THb (90.0-100.0); PCO2 ABG 45.9 mmHg (35.0-45.0); PO2 FiO2 Ratio Arterial Blood 1.61 %; Total Hemoglobin 12.4 g/dL (12.0-18.0); pH ABG 7.437 (7.350-7.450)
[2023-10-22 14:15] LABS: Device NASAL CANNULA; Liters per Minute 4.5 LPM; Modified Allen's Test Pass; Site Drawn RIGHT RADIAL
[2023-10-22] MEDS: SERTRALINE HCL 50 MG TABLET 100 MG PO (21:50)
[2023-10-22] MEDS: PRAVASTATIN SODIUM 20 MG TABLET PO (21:50)
[2023-10-23] VITALS (17 sets, daily range): BP systolic 103–119; BP diastolic 60–89; PULSE 98–112; RESP 16–20; TEMP 36.4–36.7; O2SAT 92–97
[2023-10-23 06:02] LABS: Basophils Percent Auto 0.2 % (0.2-1.2); Eosinophils Absolute Auto 0.2 K/mm3 (0-0.3); Eosinophils Percent Auto 2.3 % (0-4.4); Hematocrit 39.5 % (37.0-47.0); Hemoglobin 11.9 g/dL (12.0-15.0); Immature Granulocyte Absolute 0.05 K/mm3 (0.00-0.031); Immature Granulocyte Percent A 0.6 % (0-0.5); Lymphocytes Absolute Auto 1.31 K/mm3 (0.9-3.2); Lymphocytes Percent Auto 16.1 % (18.3-44.2); Mean Corpuscular HGB Conc 30.1 g/dl (32-36); Mean Corpuscular Hemoglobin 28.7 pg (26-34); Mean Corpuscular Volume 95.4 fl (80-100); Mean Platelet Volume 10.1 fl (7.4-10.4); Monocytes Absolute Auto 0.9 K/mm3 (0.1-0.6); Monocytes Percent Auto 11.1 % (2.6-8.5); Neutrophils Absolute Auto 5.7 K/mm3 (1.3-6.7); Neutrophils Percent Auto 69.7 % (45.5-73.1); Platelet Count Result 231 k/mm3 (150-375); Red Blood Count 4.14 M/mm3 (4.2-5.4); Red Cell Distribution Width 17.7 % (11.5-14.5); White Blood Count 8.1 K/mm3 (4.5-10.0)
[2023-10-23 06:15] LABS: Albumin Level 3.1 g/dL (3.5-5.1); Anion Gap -1 mmol/L (4-12); Blood Urea Nitrogen 20 mg/dL (7-17); Calcium 10.4 mg/dL (8.4-10.2); Carbon Dioxide 37 mmol/L (22-30); Chloride 100 mmol/L (98-107); Estimated CRCL calculation 34 ml/min; Estimated Glomerular Filt Rate 48; Glucose 130 mg/dL (65-110); Magnesium 2.2 mg/dL (1.6-2.3); Phosphorus 2.3 mg/dL (2.5-4.5); Potassium 3.4 mmol/L (3.4-5.0); Sodium 136 mmol/L (137-145)
[2023-10-23] MEDS: FLUTICASONE/SALMETEROL 115-21 MCG INHALER 1 PUFF 2 PUFF INHALATION ×2 (07:05→20:02)
[2023-10-23] MEDS: UMECLIDINIUM BROMIDE 62.5 MCG ELLIPTA 1 PUFF INHALATION (07:05)
[2023-10-23] MEDS: FAMOTIDINE 20 MG TABLET PO ×2 (08:42→22:02)
[2023-10-23] MEDS: METOPROLOL SUCCINATE EXT REL 50 MG TABCR PO (08:42)
[2023-10-23] MEDS: POTASSIUM CHLORIDE 20 MEQ ER TABLET 40 MEQ PO (08:42)
[2023-10-23] MEDS: APIXABAN 5 MG TABLET PO ×2 (08:43→22:02)
[2023-10-23] MEDS: FUROSEMIDE 40 MG TABLET PO (08:43)
[2023-10-23] MEDS: SACUBITRIL/VALSARTAN 12-13 MG TABLET 1 TAB PO ×2 (08:43→22:02)
--- NOTE | 2023-10-23 08:47 | PM.IMPN ---
Progress Note: A&P Assessment and Plan (1) CHF (congestive heart failure): Code(s): I50.9 - Heart failure, unspecified <Kathy Zapien Dee, Student - Last Filed: 10/23/23 13:24> Status: Acute <Kathy Fowlererastofish, Student - Last Filed: 10/23/23 13:24> Assessment and Plan: Patient has been having increasing pedal edema for the past few weeks. Patient was started on Las[facility] at the [facility] but symptoms worsened CXR showing diffuse bilateral lung disease and small left pleural effusion. BNP 16,300. EKG as mentioned below COVID, Influenza and RSV PCR negative. Hypoxia most likely related to CHF. PNA felt less likely. Lasix IV started but BP soft now. Echo: right ventricular systolic dysfunction, mod-severe pHTN, and preserved LV function; EF of 55-60% Oxygen saturation not improving with lasix Repeat chest X-ray on 10/18 showed persistent left sided pleural effusion (also shown on chest X-ray on 10/15) Thoracentesis performed on 10/19, removed 660ml of yellowish fluid Pleural fluid culture shows no growth in 48hrs Pleural analysis labs show lymphocytic-dominant fluid Follow the remaining pleural analysis labs Continue monitoring daily weights, I&Os and blood pressure Continue Entresto and pravastatin Hold lasix due to creatinine increase <Kathy CesarOchoa Price, Student - Last Filed: 10/23/23 13:24> Patient has been having increasing pedal edema for the past few weeks. Patient was started on Lasix at the [facility] but symptoms worsened CXR showing diffuse bilateral lung disease and small left pleural effusion. BNP 16,300. EKG as mentioned below COVID, Influenza and RSV PCR negative. Hypoxia most likely related to CHF and mod-severe CHF. PNA felt less likely. Lasix IV started but BP soft now. Echo: right ventricular systolic dysfunction, mod-severe pHTN, and preserved LV function; EF of 55-60% Oxygen saturation not improving with lasix Repeat chest X-ray on 10/18 showed persistent left sided pleural effusion (also shown on chest X-ray on 10/15) Thoracentesis performed on 10/19, removed 660ml of yellowish fluid Pleural fluid culture shows no growth in 48hrs Pleural analysis labs show lymphocytic-dominant fluid Follow the remaining pleural analysis labs Continue monitoring daily weights, I&Os and blood pressure Continue Entresto and pravastatin Hold lasix due to creatinine increase <Livan Mancia MD - Last Filed: 10/23/23 18:31> (2) Hypoxia: Code(s): R09.02 - Hypoxemia <Kathy Price, Student - Last Filed: 10/23/23 13:24> Status: Acute <Kathy Price, Student - Last Filed: 10/23/23 13:24> Assessment and Plan: Patient remains on 4L of NC after lasix therapy and thoracentesis Patient has also been tachycardic Obtain ABG Obtain CTA for possible PE, PNA, malignancy ABG showing 7.44/46/61 on 4.5L CTA chest showing no CT evidence of acute pulmonary embolus. She does have eccentric right interlobar filling defect with occlusion of the RML segmental branch and weblike defect in the bilateral lower lobe pulmonary arteries, most consistent with chronic pulmonary emboli. Peripheral lingular and left lower lobe atelectasis/consolidation. Patchy areas of reticular and ground glass opacities in the RLL, may represent chronic embolic change or infection. And a 7 mm right middle lobe pulmonary nodule and small bilateral pleural effusions. The pulmonary nodule will need further workup with follow-up CT chest in 3 months, PET/CT, or tissue sampling. Her hypoxia may be chronic due to chronic PEs. Also with atelectasis and consolidation. Monitor off abx for now Add duo-nebs prn & scheduled Xopenex Continue PT/OT Start CBT Consult speech therapy <Kathy Price, Student - Last Filed: 10/23/23 13:24> Patient remains on 4L of NC after lasix therapy and thoracentesis Patient has also been tachycardic Obtain ABG Obtain CTA for possible PE, PNA, malignancy ABG showing 7.44/46/61 on 4
[2023-10-23] MEDS: LEVALBUTEROL NEB 1.25 MG/3 ML INHALATION ×2 (13:25→20:02)
--- NOTE | 2023-10-23 13:34 | PC.NURSE ---
On 10/23/23, the student, [Lenora Rubio], provided care and completed [facility] documentation on this patient. I have reviewed the student's documentation and agree with the findings.
[2023-10-23] MEDS: POTASSIUM/PHOSPHORUS/SODIUM 1.5 GM PACKET 1 PACKET PO (13:59)
[2023-10-23] MEDS: SODIUM CHLORIDE 0.9% IV 1,000 ML 100 ML IV CONT (14:00)
[2023-10-23 15:55] LABS: Anion Gap 2 mmol/L (4-12); Blood Urea Nitrogen 19 mg/dL (7-17); Calcium 10.2 mg/dL (8.4-10.2); Carbon Dioxide 33 mmol/L (22-30); Chloride 99 mmol/L (98-107); Estimated CRCL calculation 41 ml/min; Estimated Glomerular Filt Rate 60; Glucose 146 mg/dL (65-110); Potassium 3.9 mmol/L (3.4-5.0); Sodium 134 mmol/L (137-145)
[2023-10-23 20:43] LABS: Glucose Pleural Fluid 114 mg/dL; LDH Pleural Fluid 77 U/L; Total Protein Pleural Fluid <3.0 g/dL
[2023-10-23] MEDS: SERTRALINE HCL 50 MG TABLET 100 MG PO (22:02)
[2023-10-23] MEDS: PRAVASTATIN SODIUM 20 MG TABLET PO (22:02)
[2023-10-24] VITALS (17 sets, daily range): BP systolic 108–124; BP diastolic 50–72; PULSE 86–113; RESP 16–22; TEMP 36.5–37; O2SAT 90–97
--- NOTE | 2023-10-24 03:25 | PCRCNOTE ---
Patient refused 0200 updraft treatment due to wanting sleep. Treatment to resume at 0800.
[2023-10-24 05:50] LABS: Anion Gap 3 mmol/L (4-12); Blood Urea Nitrogen 18 mg/dL (7-17); Calcium 10.5 mg/dL (8.4-10.2); Carbon Dioxide 30 mmol/L (22-30); Chloride 102 mmol/L (98-107); Estimated CRCL calculation 46 ml/min; Estimated Glomerular Filt Rate > 60; Glucose 128 mg/dL (65-110); Phosphorus 2.8 mg/dL (2.5-4.5); Potassium 4.1 mmol/L (3.4-5.0); Sodium 135 mmol/L (137-145)
[2023-10-24] MEDS: LEVALBUTEROL NEB 1.25 MG/3 ML INHALATION ×3 (08:49→20:33)
[2023-10-24] MEDS: FLUTICASONE/SALMETEROL 115-21 MCG INHALER 1 PUFF 2 PUFF INHALATION ×2 (08:49→20:34)
[2023-10-24] MEDS: UMECLIDINIUM BROMIDE 62.5 MCG ELLIPTA 1 PUFF INHALATION (08:50)
[2023-10-24] MEDS: APIXABAN 5 MG TABLET PO ×2 (09:27→20:33)
[2023-10-24] MEDS: FAMOTIDINE 20 MG TABLET PO ×2 (09:27→20:33)
[2023-10-24] MEDS: SACUBITRIL/VALSARTAN 12-13 MG TABLET 1 TAB PO ×2 (09:27→20:33)
[2023-10-24] MEDS: METOPROLOL SUCCINATE EXT REL 50 MG TABCR PO (09:27)
--- NOTE | 2023-10-24 09:39 | PCSTNOTE ---
Please refer to the Bedside Swallow Evaluation in the EMR. Please note, silent aspiration cannot be ruled out at bedside.
--- NOTE | 2023-10-24 11:01 | PM.IMPN ---
Progress Note: A&P Assessment and Plan (1) CHF (congestive heart failure): Code(s): I50.9 - Heart failure, unspecified <Kathy Fowlerdangelo, Student - Last Filed: 10/24/23 15:38> Status: Acute <Kathy Fowlererastofish, Student - Last Filed: 10/24/23 15:38> Assessment and Plan: Patient has been having increasing pedal edema for the past few weeks. Patient was started on Lasix at the [place] but symptoms worsened CXR showing diffuse bilateral lung disease and small left pleural effusion. BNP 16,300. EKG as mentioned below COVID, Influenza and RSV PCR negative. Hypoxia most likely related to CHF and mod-severe CHF. PNA felt less likely. Lasix IV started but BP soft now. Echo: right ventricular systolic dysfunction, mod-severe pHTN, and preserved LV function; EF of 55-60% Oxygen saturation not improving with lasix Repeat chest X-ray on 10/18 showed persistent left sided pleural effusion (also shown on chest X-ray on 10/15) Thoracentesis performed on 10/19, removed 660ml of yellowish fluid Pleural fluid culture shows no growth in 48hrs Pleural analysis labs show lymphocytic-dominant fluid Pleural analysis labs: transudative using Lights Criteria Continue monitoring daily weights, I&Os and blood pressure Continue Entresto and pravastatin Hold lasix due to creatinine increase <Kathy Fowlerdangelo, Student - Last Filed: 10/24/23 15:38> Patient has been having increasing pedal edema for the past few weeks. Patient was started on [place] at the [facility] but symptoms worsened CXR showing diffuse bilateral lung disease and small left pleural effusion. BNP 16,300. EKG as mentioned below COVID, Influenza and RSV PCR negative. Hypoxia most likely related to CHF and mod-severe CHF. PNA felt less likely. Lasix IV started but BP soft now. Echo: right ventricular systolic dysfunction, mod-severe pHTN, and preserved LV function; EF of 55-60% Oxygen saturation not improving with lasix Repeat chest X-ray on 10/18 showed persistent left sided pleural effusion (also shown on chest X-ray on 10/15) Thoracentesis performed on 10/19, removed 660ml of yellowish fluid Pleural fluid culture shows no growth in 48hrs Pleural analysis labs show lymphocytic-dominant fluid Pleural analysis labs: transudative using Lights Criteria Continue monitoring daily weights, I&Os and blood pressure Continue Entresto and pravastatin Lasix held for rising Cr but normal now. <Livan Mancia MD - Last Filed: 10/24/23 19:12> (2) Hypoxia: Code(s): R09.02 - Hypoxemia <Kathy Price, Student - Last Filed: 10/24/23 15:38> Status: Acute <Kathy Price, Student - Last Filed: 10/24/23 15:38> Assessment and Plan: Patient remains on 4L of NC after lasix therapy and thoracentesis Patient has also been tachycardic Obtain ABG Obtain CTA for possible PE, PNA, malignancy ABG showing 7.44/46/61 on 4.5L CTA chest showing no CT evidence of acute pulmonary embolus. She does have eccentric right interlobar filling defect with occlusion of the RML segmental branch and weblike defect in the bilateral lower lobe pulmonary arteries, most consistent with chronic pulmonary emboli. Peripheral lingular and left lower lobe atelectasis/consolidation. Patchy areas of reticular and ground glass opacities in the RLL, may represent chronic embolic change or infection. And a 7 mm right middle lobe pulmonary nodule and small bilateral pleural effusions. The pulmonary nodule will need further workup with follow-up CT chest in 3 months, PET/CT, or tissue sampling. Her hypoxia may be chronic due to chronic PEs. Also with atelectasis and consolidation. Monitor off abx for now Also with severe pulmonary HTN related to PE? vs ESTER but unclear why she having increasing O2 requirement. Consider ESTER but not CO2 retainer. Add scheduled Xopenex; Duonebs available still as needed Continue PT/OT Continue CBT Consult speech therapy to exclude aspiration -- patient pa
[2023-10-24 17:22] LABS: Amylase, Pleural Fluid 13 U/L
[2023-10-24] MEDS: SERTRALINE HCL 50 MG TABLET 100 MG PO (20:33)
[2023-10-24] MEDS: PRAVASTATIN SODIUM 20 MG TABLET PO (20:33)
[2023-10-25] VITALS (19 sets, daily range): BP systolic 105–127; BP diastolic 51–60; PULSE 94–104; RESP 18–20; TEMP 36.6–36.7; O2SAT 93–98
[2023-10-25] MEDS: LEVALBUTEROL NEB 1.25 MG/3 ML INHALATION ×4 (02:34→19:32)
[2023-10-25 05:57] LABS: Basophils Percent Auto 0.3 % (0.2-1.2); Eosinophils Absolute Auto 0.2 K/mm3 (0-0.3); Eosinophils Percent Auto 3.2 % (0-4.4); Hematocrit 39.4 % (37.0-47.0); Hemoglobin 11.9 g/dL (12.0-15.0); Immature Granulocyte Absolute 0.02 K/mm3 (0.00-0.031); Immature Granulocyte Percent A 0.3 % (0-0.5); Lymphocytes Absolute Auto 1.66 K/mm3 (0.9-3.2); Lymphocytes Percent Auto 23.2 % (18.3-44.2); Mean Corpuscular HGB Conc 30.2 g/dl (32-36); Mean Corpuscular Hemoglobin 29.2 pg (26-34); Mean Corpuscular Volume 96.6 fl (80-100); Mean Platelet Volume 10.3 fl (7.4-10.4); Monocytes Absolute Auto 0.8 K/mm3 (0.1-0.6); Monocytes Percent Auto 11.2 % (2.6-8.5); Neutrophils Absolute Auto 4.4 K/mm3 (1.3-6.7); Neutrophils Percent Auto 61.8 % (45.5-73.1); Platelet Count Result 246 k/mm3 (150-375); Red Blood Count 4.08 M/mm3 (4.2-5.4); Red Cell Distribution Width 17.7 % (11.5-14.5); White Blood Count 7.2 K/mm3 (4.5-10.0)
[2023-10-25 06:10] LABS: Anion Gap 1 mmol/L (4-12); Blood Urea Nitrogen 18 mg/dL (7-17); Calcium 10.7 mg/dL (8.4-10.2); Carbon Dioxide 35 mmol/L (22-30); Chloride 102 mmol/L (98-107); Estimated CRCL calculation 37 ml/min; Estimated Glomerular Filt Rate 53; Glucose 118 mg/dL (65-110); Potassium 3.7 mmol/L (3.4-5.0); Sodium 138 mmol/L (137-145)
[2023-10-25] MEDS: SACUBITRIL/VALSARTAN 12-13 MG TABLET 1 TAB PO ×2 (08:32→20:53)
[2023-10-25] MEDS: APIXABAN 5 MG TABLET PO ×2 (08:34→20:53)
[2023-10-25] MEDS: METOPROLOL SUCCINATE EXT REL 50 MG TABCR PO (08:34)
[2023-10-25] MEDS: FAMOTIDINE 20 MG TABLET PO ×2 (08:34→20:53)
[2023-10-25] MEDS: UMECLIDINIUM BROMIDE 62.5 MCG ELLIPTA 1 PUFF INHALATION (08:51)
[2023-10-25 14:46] LABS: Albumin Pleural Fluid 0.9 g/dL
--- NOTE | 2023-10-25 14:46 | PM.CNPUL ---
Assessment and Plan Assessment and plan (1) Hypoxia: Code(s): R09.02 - Hypoxemia Status: Acute Assessment and Plan: Admitted from NH requiring O2 due to CHF with hypoxemia, has had need for O2 the entire time she has been here, around 3 L/min. With new diagnoses, chronic thromboembolic disease, severe pulmonary hypertension, right heart failure and I see obstructive sleep apnea listed as a diagnosis but did not explore it because at her age and dementia at using CPAP is not a priority. She has enough reasons to need O2, and can go to NH on O2 at discharge. (2) Smoking 1/2 pack a day or less: Code(s): F17.210 - Nicotine dependence, cigarettes, uncomplicated Status: Acute Assessment and Plan: Smoked for years, up unti arrival here, not asking for tobacco. This admission is the first time she has not wanted to smoke. She smokes at the NH, goes outside with other smokers. Started in her teens. (3) Obstructive lung disease (generalized): Code(s): J44.9 - Chronic obstructive pulmonary disease, unspecified Status: Acute Assessment and Plan: By history; I stopped the umeclidinium; she is already on ipratropium nebulized treatments, both are anticholinergics. She is also on Advair. This is a total of 3 medicatons for COPD, 2 bronchodilators and an inhaled corticosteroid. (4) Biventricular failure: Code(s): I50.82 - Biventricular heart failure Status: Acute Assessment and Plan: LVEF 64%, poor RV function, enlarged RV and biatrial enlargement. Using O2 will help reduce pulmonary pressures. Treatment for RV failure is fluids, and diuresis is needed for Left heart failure. She has LE extremity edema, will balance between too little and too much fluid. (5) Chronic thromboembolic disease: Code(s): I74.9 - Embolism and thrombosis of unspecified artery Status: Acute Assessment and Plan: Her CTA 10/21 shows chronic pulmonary emboli with a filling defect in the right interlobar artery; she has biventricular failure with the Right ventricle much worse than the left with severe pulmonary hypertension. This is a new diagnosis, no prior history of thromboembolic disease. She is not a great candidate for anticoagulation because of dementia, difficulty ambulating, already on apixaban 5 mg for her atrial flutter. (6) Pulmonary hypertension: Code(s): I27.20 - Pulmonary hypertension, unspecified Status: Acute Assessment and Plan: Severe pulmonary hypertension secondary to hypoxemia, biventricular failure, chronic thromboembolic disease, obstructive lung disease, untreated obstructive sleep apnea. Treatment is management of the other conditions which she is getting now overall not responding well. Plan This 83-year-old woman with advancing dementia, has had worsening overall status since July. Her daughter Johanna admitted her to a fpc in July when she could no longer attend all of the patient's needs at home. The patient cold not help herself as far as eating, toileting, and she wanted to sleep most of the time. However she did not require O2. Now, in the NH, she sits in a chair most of the daytime. She was admitted October 10 with biventricular CHF, developed atrial flutter, had a CXR with florid pulmonary edema, and has been on O2 since this admission. She had a thoracentesis October 19, fluid appears to have been transudate due to CHF. Does not appear to have pneumonia, has a small nodule 7 mm, Rad recommends CT in 3 months. I had a long call with Johanna.
--- NOTE | 2023-10-25 16:45 | PM.IMPN ---
Progress Note: A&P Assessment and Plan (1) CHF (congestive heart failure): Code(s): I50.9 - Heart failure, unspecified Status: Acute Assessment and Plan: Patient has been having increasing pedal edema for the past few weeks. Patient was started on Lasix at the [facility] but symptoms worsened and developed hypoxia. CXR showing diffuse bilateral lung disease and small left pleural effusion. BNP 16,300. EKG showing atrial flutter/tachycardia, RAD and nonspecific ST and T-wave changes COVID, Influenza and RSV PCR negative. Lasix IV started Echo showing normal LV size and systolic fxn with EF 55-60% and RV systolic dysfunction, mod-severe pHTN, and severe biatrial enlargement Repeat CXR 10/18 showed persistent left sided pleural effusion (also shown on chest X-ray on 10/15) Thoracentesis performed on 10/19, removed 660ml of yellowish fluid Pleural fluid culture shows no growth in 48hrs. Pleural analysis labs show lymphocytic-dominant fluid. Pleural analysis labs: transudative using Lights Criteria Suspect she has acute diastolic CHF with right sided CHF. Started Entresto 10/13 and is tolerating well. Continue Entresto. Lasix held due to soft BP and rising Cr. Continue monitoring daily weights, I&Os and blood pressure Resume Lasix when able. (2) Hypoxia: Code(s): R09.02 - Hypoxemia Status: Acute Assessment and Plan: Patient hypoxic on admission. She does not wear O2 prior to admission. ABG showing 7.44/46/61 on 4.5L CTA chest showing no CT evidence of acute pulmonary embolus. but does show eccentric right interlobar filling defect with occlusion of the RML segmental branch and weblike defect in the bilateral lower lobe pulmonary arteries, most consistent with chronic pulmonary emboli. Peripheral lingular and left lower lobe atelectasis/consolidation. Patchy areas of reticular and ground glass opacities in the RLL, may represent chronic embolic change or infection. And a 7 mm RML pulmonary nodule and small bilateral pleural effusions. The pulmonary nodule will need further workup with follow-up CT chest in 3 months, PET/CT, or tissue sampling. Her hypoxia may be chronic due to chronic PEs causing pHTN. Also with atelectasis and consolidation. Also with severe pulmonary HTN related to PE? vs ESTER but unclear why she having increasing O2 requirement now. Speech therapy -- patient passed her speech swallow test, no signs of aspiration noted throughout the assessment Consider ESTER but not CO2 retainer. Added scheduled Xopenex; Duonebs available still as needed Continue CBT Patient now on 3L NC, decreased from yesterday Plan for pulmonary consult. Consider apnea link Monitor off abx for now (3) Atrial flutter by electrocardiogram: Code(s): I48.92 - Unspecified atrial flutter Status: Acute Assessment and Plan: Initial EKG showing atrial flutter/tachycardia, RAD and nonspecific ST and T-wave changes Repeat EKG showing SVT (120) with diffuse borderline T wave changes and Metoprolol 5mg IV once given. EKG showing NSR with first degree block. She was on Atenolol but changed to Toprol with imprved HR control. Eliquis started due to DVT and AFlutter. TSH normal in June Dysrhythmia maybe the etiology of her CHF exacerbation Cardiology consulted and appreciate their input Continue metoprolol Continue Eliquis Monitor on tele (4) Deep vein thrombosis (DVT): Qualifiers: DVT location: lower extremity Affected thrombotic vein of extremity: femoral Chronicity: acute Laterality: left Qualified Code(s): I82.412 - Acute embolism and thrombosis of left femoral vein Code(s): I82.409 - Acute embolism and thrombosis of unspecified deep veins of unspecified lower extremity Status: Acute Assessment and Plan: Patient presents with bilateral lower extremity edema (L>R) Bilateral venous dopplers showed acute DVT in L femoral and popliteal veins Continue Eliquis Monitor
[2023-10-25] MEDS: FLUTICASONE/SALMETEROL 115-21 MCG INHALER 1 PUFF 2 PUFF INHALATION (19:32)
[2023-10-25] MEDS: SERTRALINE HCL 50 MG TABLET 100 MG PO (20:53)
[2023-10-25] MEDS: PRAVASTATIN SODIUM 20 MG TABLET PO (20:53)
[2023-10-25] MEDS: ACETAMINOPHEN 325 MG TABLET 650 MG PO (20:54)
[2023-10-26] VITALS (20 sets, daily range): BP systolic 118–131; BP diastolic 59–60; PULSE 94–102; RESP 16–20; TEMP 36.4–36.6; O2SAT 94–98
[2023-10-26] MEDS: LEVALBUTEROL NEB 1.25 MG/3 ML INHALATION ×4 (02:54→19:45)
[2023-10-26] MEDS: METOPROLOL SUCCINATE EXT REL 50 MG TABCR PO (09:00)
[2023-10-26] MEDS: SACUBITRIL/VALSARTAN 12-13 MG TABLET 1 TAB PO ×2 (09:00→20:22)
[2023-10-26] MEDS: FAMOTIDINE 20 MG TABLET PO ×2 (09:01→20:22)
[2023-10-26] MEDS: APIXABAN 5 MG TABLET PO ×2 (09:01→20:22)
[2023-10-26] MEDS: FLUTICASONE/SALMETEROL 115-21 MCG INHALER 1 PUFF 2 PUFF INHALATION ×2 (09:34→19:46)
--- NOTE | 2023-10-26 12:17 | PM.PNPUL ---
Progress Note: A&P Assessment and Plan (1) Hypoxia: Code(s): R09.02 - Hypoxemia Status: Acute Assessment and Plan: Now on room air. Admitted from NH requiring O2 due to CHF with hypoxemia, has had need for O2 the entire time she has been here, around 3 L/min. With new diagnoses, chronic thromboembolic disease, severe pulmonary hypertension, right heart failure and I see obstructive sleep apnea listed as a diagnosis but did not explore it because at her age and dementia at using CPAP is not a priority. She has enough reasons to need O2, and can go to [place] on O2 at discharge. (2) Smoking 1/2 pack a day or less: Code(s): F17.210 - Nicotine dependence, cigarettes, uncomplicated Status: Acute Assessment and Plan: Smoked for years, up unti arrival here, not asking for tobacco. This admission is the first time she has not wanted to smoke. She smokes at the NH, goes outside with other smokers. Started in her teens. (3) Obstructive lung disease (generalized): Code(s): J44.9 - Chronic obstructive pulmonary disease, unspecified Status: Acute Assessment and Plan: COPD is a diagnosis by history; I stopped the umeclidinium; she is already on ipratropium nebulized treatments, both are anticholinergics. She is also on Advair. This is a total of 3 medications for COPD, 2 bronchodilators and an inhaled corticosteroid. (4) Biventricular failure: Code(s): I50.82 - Biventricular heart failure Status: Acute Assessment and Plan: LVEF 64%, poor RV function, enlarged RV and biatrial enlargement. Using O2 will help reduce pulmonary pressures. Treatment for RV failure is fluids, and diuresis is needed for Left heart failure. She had LE extremity edema, now diuresed; will balance between too little and too much fluid. (5) Chronic thromboembolic disease: Code(s): I74.9 - Embolism and thrombosis of unspecified artery Status: Acute Assessment and Plan: Her CTA 10/21 shows chronic pulmonary emboli with a filling defect in the right interlobar artery; she has biventricular failure with the Right ventricle much worse than the left with severe pulmonary hypertension. This is a new diagnosis, no prior history of thromboembolic disease. She is not a great candidate for anticoagulation because of dementia, difficulty ambulating, already on apixaban 5 mg for her atrial flutter. (6) Pulmonary hypertension: Code(s): I27.20 - Pulmonary hypertension, unspecified Status: Acute Assessment and Plan: Severe pulmonary hypertension secondary to hypoxemia, biventricular failure, chronic thromboembolic disease, obstructive lung disease, untreated obstructive sleep apnea. Treatment is management of the other conditions which she is getting now overall not responding well. Plan This 83-year-old woman with advancing dementia, has had worsening overall status since July. Her daughter Johanna admitted her to a care home in July when she could no longer attend all of the patient's needs at home. The patient cold not help herself as far as eating, toileting, and she wanted to sleep most of the time. However she did not require O2. Now, in the NH, she sits in a chair most of the daytime. She was admitted October 10 with biventricular CHF, developed atrial flutter, had a CXR with florid pulmonary edema, and has been on O2 since this admission. She had a thoracentesis October 19, fluid appears to have been transudate due to CHF. Does not appear to have pneumonia, has a small nodule 7 mm, Rad recommends
--- NOTE | 2023-10-26 17:09 | PM.IMPN ---
Progress Note: A&P Assessment and Plan (1) CHF (congestive heart failure): Code(s): I50.9 - Heart failure, unspecified Status: Acute Assessment and Plan: Patient has been having increasing pedal edema for the past few weeks. Patient was started on Lasix at the [facility] but symptoms worsened and developed hypoxia. CXR showing diffuse bilateral lung disease and small left pleural effusion. BNP 16,300. EKG showing atrial flutter/tachycardia, RAD and nonspecific ST and T-wave changes COVID, Influenza and RSV PCR negative. Lasix IV started Echo showing normal LV size and systolic fxn with EF 55-60% and RV systolic dysfunction, mod-severe pHTN, and severe biatrial enlargement Repeat CXR 10/18 showed persistent left sided pleural effusion (also shown on chest X-ray on 10/15) Thoracentesis performed on 10/19, removed 660ml of yellowish fluid Pleural fluid culture shows no growth in 48hrs. Pleural analysis labs show lymphocytic-dominant fluid. Pleural analysis labs: transudative using Lights Criteria Suspect she has acute diastolic CHF with right sided CHF. Started Entresto 10/13 and is tolerating well. Continue Entresto. Lasix held due to soft BP and rising Cr. Continue monitoring daily weights, I&Os and blood pressure Resume Lasix tomorrow (2) Hypoxia: Code(s): R09.02 - Hypoxemia Status: Acute Assessment and Plan: Patient hypoxic on admission. She does not wear O2 prior to admission. ABG showing 7.44/46/61 on 4.5L CTA chest showing no CT evidence of acute pulmonary embolus. but does show eccentric right interlobar filling defect with occlusion of the RML segmental branch and weblike defect in the bilateral lower lobe pulmonary arteries, most consistent with chronic pulmonary emboli. Peripheral lingular and left lower lobe atelectasis/consolidation. Patchy areas of reticular and ground glass opacities in the RLL, may represent chronic embolic change or infection. And a 7 mm RML pulmonary nodule and small bilateral pleural effusions. The pulmonary nodule will need further workup with follow-up CT chest in 3 months, PET/CT, or tissue sampling. Her hypoxia may be chronic due to chronic PEs causing pHTN. Also with atelectasis and consolidation. Also with severe pulmonary HTN related to PE? vs ESTER but unclear why she having increasing O2 requirement now. Speech therapy -- patient passed her speech swallow test, no signs of aspiration noted throughout the assessment Consider ESTER but not CO2 retainer. Added scheduled Xopenex; Duonebs available still as needed Continue CBT Patient now on 3L NC and stable Pulmonary consulted and apprecaite their input. Monitor off abx for now (3) Atrial flutter by electrocardiogram: Code(s): I48.92 - Unspecified atrial flutter Status: Acute Assessment and Plan: Initial EKG showing atrial flutter/tachycardia, RAD and nonspecific ST and T-wave changes Repeat EKG showing SVT (120) with diffuse borderline T wave changes and Metoprolol 5mg IV once given. EKG showing NSR with first degree block. She was on Atenolol but changed to Toprol with imprved HR control. Eliquis started due to DVT and AFlutter. TSH normal in June Dysrhythmia maybe the etiology of her CHF exacerbation Cardiology consulted and appreciate their input Continue metoprolol Continue Eliquis [place] to stop tele (4) Deep vein thrombosis (DVT): Qualifiers: DVT location: lower extremity Affected thrombotic vein of extremity: femoral Chronicity: acute Laterality: left Qualified Code(s): I82.412 - Acute embolism and thrombosis of left femoral vein Code(s): I82.409 - Acute embolism and thrombosis of unspecified deep veins of unspecified lower extremity Status: Acute Assessment and Plan: Patient presents with bilateral lower extremity edema (L>R) Bilateral venous dopplers showed acute DVT in L femoral and popliteal veins Continue Eliquis Monitor (5) UTI (u
[2023-10-26] MEDS: SERTRALINE HCL 50 MG TABLET 100 MG PO (20:22)
[2023-10-26] MEDS: PRAVASTATIN SODIUM 20 MG TABLET PO (20:22)
--- NOTE | 2023-10-26 22:26 | PC.NURSE ---
Pt transferring to 3rd medical unit, daughter notified of transfer to room 344
[2023-10-27] VITALS (12 sets, daily range): BP systolic 119–132; BP diastolic 51–71; PULSE 64–105; RESP 18–22; TEMP 36.6–36.9; O2SAT 91–95
[2023-10-27] MEDS: LEVALBUTEROL NEB 1.25 MG/3 ML INHALATION ×3 (02:15→13:25)
[2023-10-27 06:49] LABS: Anion Gap 3 mmol/L (4-12); Blood Urea Nitrogen 19 mg/dL (7-17); Calcium 10.6 mg/dL (8.4-10.2); Carbon Dioxide 27 mmol/L (22-30); Chloride 105 mmol/L (98-107); Estimated CRCL calculation 51 ml/min; Estimated Glomerular Filt Rate > 60; Glucose 107 mg/dL (65-110); Potassium 4.6 mmol/L (3.4-5.0); Sodium 135 mmol/L (137-145)
[2023-10-27] MEDS: FLUTICASONE/SALMETEROL 115-21 MCG INHALER 1 PUFF 2 PUFF INHALATION ×2 (07:31→20:33)
[2023-10-27] MEDS: APIXABAN 5 MG TABLET PO ×2 (09:22→20:53)
[2023-10-27] MEDS: FUROSEMIDE 20 MG TABLET PO (09:22)
[2023-10-27] MEDS: METOPROLOL SUCCINATE EXT REL 50 MG TABCR PO (09:22)
[2023-10-27] MEDS: FAMOTIDINE 20 MG TABLET PO ×2 (09:23→20:53)
[2023-10-27] MEDS: SACUBITRIL/VALSARTAN 12-13 MG TABLET 1 TAB PO ×2 (10:42→20:54)
--- NOTE | 2023-10-27 10:44 | PCNWS ---
Weekly nutritional screen. Patient is tolerating current diet with adequate intake. No weight loss reported. No nutritional needs at this time.
--- NOTE | 2023-10-27 13:16 | PM.PNPUL ---
Progress Note: A&P Assessment and Plan (1) Hypoxia: Code(s): R09.02 - Hypoxemia Status: Acute Assessment and Plan: Admitted from [place] requiring O2 due to CHF with hypoxemia, has had need for O2 the entire time she has been here, around 3 L/min. With new diagnoses, chronic thromboembolic disease, severe pulmonary hypertension, right heart failure and I see obstructive sleep apnea listed as a diagnosis but did not explore it because at her age and dementia at using CPAP is not a priority. She has enough reasons to need O2, and can go to [place] on O2 at discharge. 10/27/23: Patient is confused. She is in bed with says 3 L nasal cannula saturations 97%. She has no specific complaints. The daughter is at the bedside and says the patient is a fall risk. The daughter tells me she was in the process of getting her home CPAP machine replaced but then the patient developed COVID in July and this was put on hold. Her CPAP machine has not been working. Etiology of hypoxic respiratory failure includes: Biventricular heart failure, obstructive ventilatory defect with a history of tobacco use, untreated obstructive sleep apnea, chronic thromboembolic disease, post COVID condition. Plan: Patient has a transudative pleural effusion and agree with as aggressive diuresis as tolerated per cardiac and renal systems. Currently the patient is on 20 mg of Lasix p.o. q.day. Patient has untreated obstructive sleep apnea with CPAP machine at [facility]. Tonight the patient tells me she will wear auto Pap 5-15 with room air and I will check an overnight oximetry on these settings. (2) Obstructive lung disease (generalized): Code(s): J44.9 - Chronic obstructive pulmonary disease, unspecified Status: Acute Assessment and Plan: COPD is a diagnosis by history; Smoked for years, up unti arrival here, not asking for tobacco. This admission is the first time she has not wanted to smoke. She smokes at the [place], goes outside with other smokers. Started in her teens. has a small nodule 7 mm, Rad recommends CT in 3 months. 10/26/23: I stopped the umeclidinium; she is already on ipratropium nebulized treatments, both are anticholinergics. She is also on Advair. This is a total of 3 medications for COPD, 2 bronchodilators and an inhaled corticosteroid. 10/27/23: Patient carries a history of obstructive ventilatory defects and is on Symbicort and Spiriva at home. I have no PFTs. She has no bullous emphysema on her CT scan on 10/22/2023. She has no wheezing currently. Plan: I will continue Symbicort 115-21 at 2 puffs q.12 hours. I will discontinue levalbuterol nebulizer. (3) Chronic thromboembolic disease: Code(s): I74.9 - Embolism and thrombosis of unspecified artery Status: Acute Assessment and Plan: Her CTA 10/21 shows chronic pulmonary emboli with a filling defect in the right interlobar artery; she has biventricular failure with the Right ventricle much worse than the left with severe pulmonary hypertension. This is a new diagnosis, no prior history of thromboembolic disease. She is not a great candidate for anticoagulation because of dementia, difficulty ambulating, already on apixaban 5 mg for her atrial flutter. 10/27/23: The patient has an acute left femoral and popliteal vein DVT or and a CT scan with possible chronic occlusion of the right middle lobe segmental branch in web like defect in the bilateral lower lobe pulmonary arteries most consistent with chronic pulmonary emboli. Her CTA 10/21 shows chronic pulmonary emboli with a filling defect in the right interlobar artery; she has biventricular failure with the Right ventricle much worse than the left with severe pulmonary hypertension. This is a new diagnosis, no prior history of thromboembolic disease. She is not a great candidate for anticoagulation because
--- NOTE | 2023-10-27 19:14 | PM.IMPN ---
Progress Note: A&P Assessment and Plan (1) CHF (congestive heart failure): Code(s): I50.9 - Heart failure, unspecified Status: Acute Assessment and Plan: Patient has been having increasing pedal edema for the past few weeks. Patient was started on Lasix at the [facility] but symptoms worsened and developed hypoxia. CXR showing diffuse bilateral lung disease and small left pleural effusion. BNP 16,300. EKG showing atrial flutter/tachycardia, RAD and nonspecific ST and T-wave changes. COVID, Influenza and RSV PCR negative. Lasix IV started. Echo showing normal LV size and systolic fxn with EF 55-60% and RV systolic dysfunction, mod-severe pHTN, and severe biatrial enlargement. Repeat CXR 10/18 showed persistent left sided pleural effusion (also shown on chest X-ray on 10/15). Thoracentesis performed on 10/19, removed 660ml of yellowish fluid. Pleural fluid culture shows no growth in 48hrs. Pleural analysis labs show lymphocytic-dominant fluid. Pleural analysis labs: transudative using Lights Criteria. Suspect she has acute diastolic CHF with right sided CHF. Started Entresto 10/13 and is tolerating well. Continue Entresto. Continue monitoring daily weights, I&Os and blood pressure. Lasix was held but now resumed. (2) Hypoxia: Code(s): R09.02 - Hypoxemia Status: Acute Assessment and Plan: Patient hypoxic on admission. She does not wear O2 prior to admission. ABG showing 7.44/46/61 on 4.5L CTA chest showing no CT evidence of acute pulmonary embolus. but does show eccentric right interlobar filling defect with occlusion of the RML segmental branch and weblike defect in the bilateral lower lobe pulmonary arteries, most consistent with chronic pulmonary emboli. Peripheral lingular and left lower lobe atelectasis/consolidation. Patchy areas of reticular and ground glass opacities in the RLL, may represent chronic embolic change or infection. And a 7 mm RML pulmonary nodule and small bilateral pleural effusions. The pulmonary nodule will need further workup with follow-up CT chest in 3 months, PET/CT, or tissue sampling. Her hypoxia may be chronic due to chronic PEs causing pHTN. Also with atelectasis and consolidation. Also with severe pulmonary HTN related to chronic PE and/or ESTER but unclear why she having increasing O2 requirement now. Speech therapy -- patient passed her speech swallow test, no signs of aspiration noted throughout the assessment She actually has ESTER but not CO2 retainer. Plan for apnea link with BiPAP in place. Added scheduled Xopenex; Duonebs available still as needed Continue CBT Patient stable on 3L NC Pulmonary consulted and apprecaite their input. Discussed Monitor off abx for now (3) Atrial flutter by electrocardiogram: Code(s): I48.92 - Unspecified atrial flutter Status: Acute Assessment and Plan: Initial EKG showing atrial flutter/tachycardia, RAD and nonspecific ST and T-wave changes Repeat EKG showing SVT (120) with diffuse borderline T wave changes and Metoprolol 5mg IV once given. EKG showing NSR with first degree block. She was on Atenolol but changed to Toprol with imprved HR control. Eliquis started due to DVT and AFlutter. TSH normal in June Dysrhythmia maybe the etiology of her CHF exacerbation Cardiology consulted and appreciate their input Continue metoprolol Continue Eliquis (4) Deep vein thrombosis (DVT): Qualifiers: DVT location: lower extremity Affected thrombotic vein of extremity: femoral Chronicity: acute Laterality: left Qualified Code(s): I82.412 - Acute embolism and thrombosis of left femoral vein Code(s): I82.409 - Acute embolism and thrombosis of unspecified deep veins of unspecified lower extremity Status: Acute Assessment and Plan: Patient presents with bilateral lower extremity edema (L>R) Bilateral venous dopplers showed acute DVT in L femoral and popliteal veins Continue Eliquis Monit
[2023-10-27] MEDS: PRAVASTATIN SODIUM 20 MG TABLET PO (20:53)
[2023-10-27] MEDS: ACETAMINOPHEN 325 MG TABLET 650 MG PO (20:54)
[2023-10-27] MEDS: SERTRALINE HCL 50 MG TABLET 100 MG PO (20:54)
[2023-10-28] VITALS (7 sets, daily range): BP systolic 118–131; BP diastolic 60–69; PULSE 95–102; RESP 17–20; TEMP 36.4–36.8; O2SAT 94–97
[2023-10-28 06:02] LABS: Hematocrit 38.2 % (37.0-47.0); Hemoglobin 11.4 g/dL (12.0-15.0); Mean Corpuscular HGB Conc 29.8 g/dl (32-36); Mean Corpuscular Hemoglobin 28.6 pg (26-34); Mean Corpuscular Volume 95.7 fl (80-100); Mean Platelet Volume 9.6 fl (7.4-10.4); Platelet Count Result 245 k/mm3 (150-375); Red Blood Count 3.99 M/mm3 (4.2-5.4); Red Cell Distribution Width 17.5 % (11.5-14.5); White Blood Count 6.2 K/mm3 (4.5-10.0)
[2023-10-28 06:21] LABS: Anion Gap 0 mmol/L (4-12); Blood Urea Nitrogen 17 mg/dL (7-17); Calcium 10.4 mg/dL (8.4-10.2); Carbon Dioxide 29 mmol/L (22-30); Chloride 104 mmol/L (98-107); Estimated CRCL calculation 40 ml/min; Estimated Glomerular Filt Rate 60; Glucose 121 mg/dL (65-110); Potassium 3.8 mmol/L (3.4-5.0); Sodium 133 mmol/L (137-145)
[2023-10-28] MEDS: FLUTICASONE/SALMETEROL 115-21 MCG INHALER 1 PUFF 2 PUFF INHALATION ×2 (07:24→21:27)
[2023-10-28] MEDS: METOPROLOL SUCCINATE EXT REL 50 MG TABCR PO (08:46)
[2023-10-28] MEDS: FAMOTIDINE 20 MG TABLET PO ×2 (08:46→21:14)
[2023-10-28] MEDS: APIXABAN 5 MG TABLET PO ×2 (08:46→21:15)
[2023-10-28] MEDS: FUROSEMIDE 40 MG TABLET PO (08:47)
[2023-10-28] MEDS: SACUBITRIL/VALSARTAN 12-13 MG TABLET 1 TAB PO ×2 (08:47→21:14)
--- NOTE | 2023-10-28 09:54 | PM.PNPUL ---
Progress Note: A&P Assessment and Plan (1) Hypoxia: Code(s): R09.02 - Hypoxemia Status: Acute Assessment and Plan: Admitted from [facility] requiring O2 due to CHF with hypoxemia, has had need for O2 the entire time she has been here, around 3 L/min. With new diagnoses, chronic thromboembolic disease, severe pulmonary hypertension, right heart failure and I see obstructive sleep apnea listed as a diagnosis but did not explore it because at her age and dementia at using CPAP is not a priority. She has enough reasons to need O2, and can go to [facility] on O2 at discharge. 10/27/23: Patient is confused. She is in bed with says 3 L nasal cannula saturations 97%. She has no specific complaints. The daughter is at the bedside and says the patient is a fall risk. The daughter tells me she was in the process of getting her home CPAP machine replaced but then the patient developed COVID in July and this was put on hold. Her CPAP machine has not been working. Etiology of hypoxic respiratory failure includes: Biventricular heart failure, obstructive ventilatory defect with a history of tobacco use, untreated obstructive sleep apnea, chronic thromboembolic disease, post COVID condition. Plan: Patient has a transudative pleural effusion and agree with as aggressive diuresis as tolerated per cardiac and renal systems. Currently the patient is on 20 mg of Lasix p.o. q.day. Patient has untreated obstructive sleep apnea with CPAP machine at [facility]. Tonight the patient tells me she will wear auto Pap 5-15 with room air and I will check an overnight oximetry on these settings. 10/28/23: Patient is more lucid this morning. Patient could not tolerate auto PAP last night. Are coordinator called [facility] and apparently she refuses to wear the CPAP at the half-way. currently she is on 2 L nasal cannula saturations 90%. She denies cough, fever, phlegm production. White blood cell count 6.2, creatinine 0.9. Weight is 76 kg. Patient had an overnight oximetry on 2 L nasal cannula with recording duration of 8 hours and 7 minutes. Average saturation 90%. Low saturation 57%. Time with saturation less than or equal to 88% was 85 minutes. Oxygen desaturation index 2.8. Plan: Patient is ready to be discharged from a pulmonary perspective on these pulmonary medications: Symbicort 160-4.5 at 2 puffs b.i.d.. Spiriva HandiHaler 18 mcg 1 inhalation q.day rescue albuterol 2 puffs q.4 hours p.r.n. shortness of breath or wheezing. Oxygen at rest and with ambulation per facilities protocol. Currently she is on 2 L nasal cannula at rest with saturations 90%. At night the patient should wear auto PAP 5-15 as tolerated when she sleeps. Patient should have an overnight oximetry on auto PAP 5-15 on room air 1 she is tolerating this. If patient cannot tolerate auto PAP she should wear 4 L nasal cannula at night. She should have a repeat overnight oximetry on 4 L oxygen at night at her facility. Diuretics per hospitalist team. Currently she is on Lasix 40 mg p.o. q.day. patient is on apixaban 5 mg p.o. q.12 hours for DVT and possible chronic thromboembolic disease in the lung. The daughter tells me she has had multiple falls at the nursing facility and at this time I recommend discontinuation of apixaban due to these falls. Discussed with Dr. Mancia, will sign off, call with questions (2) Obstructive lung disease (generalized): Code(s): J44.9 - Chronic obstructive pulmonary disease, unspecified Status: Acute Assessment and Plan: COPD is a diagnosis by history; Smoked for years, up unti arrival here, not asking for tobacco. This admission is the first time she has not wanted to smoke. She smokes at the [facility], goes outside with other smokers. Started in her teens. has a small nodule 7 mm, Rad recommends CT in 3 months. 10/26/23: I stopped the umeclidinium; she is already on ipratropium neb
--- NOTE | 2023-10-28 14:04 | PM.DS ---
DS: Admitting Diagnosis Discharge Date 10/28/23 Admitting Diagnosis Shortness of breath DS: Discharge Diagnosis Discharge Diagnosis (1) CHF (congestive heart failure): Code(s): I50.9 - Heart failure, unspecified Status: Acute (2) Hypoxia: Code(s): R09.02 - Hypoxemia Status: Acute (3) Atrial flutter by electrocardiogram: Code(s): I48.92 - Unspecified atrial flutter Status: Acute (4) Deep vein thrombosis (DVT): Qualifiers: DVT location: lower extremity Affected thrombotic vein of extremity: femoral Chronicity: acute Laterality: left Qualified Code(s): I82.412 - Acute embolism and thrombosis of left femoral vein Code(s): I82.409 - Acute embolism and thrombosis of unspecified deep veins of unspecified lower extremity Status: Acute (5) Essential (primary) hypertension: Code(s): I10 - Essential (primary) hypertension Status: Acute (6) Prediabetes: Code(s): R73.03 - Prediabetes Status: Acute (7) Dementia: Code(s): F03.90 - Unspecified dementia, unspecified severity, without behavioral disturbance, psychotic disturbance, mood disturbance, and anxiety Status: Acute (8) Pulmonary hypertension: Code(s): I27.20 - Pulmonary hypertension, unspecified Status: Acute (9) Chronic thromboembolic disease: Code(s): I74.9 - Embolism and thrombosis of unspecified artery Status: Acute (10) Obstructive lung disease (generalized): Code(s): J44.9 - Chronic obstructive pulmonary disease, unspecified Status: Acute DS: Summary Hospital Course Reason for hospitalization: 83yo female with COPD and HTN here for SOB and bilateral leg swelling. Please see H&P for details. Hospital Course: Patient was having increasing pedal edema for the past few weeks. Patient was started on Lasix at the [facility] but symptoms worsened and developed hypoxia. CXR showing diffuse bilateral lung disease and small left pleural effusion.? BNP 16,300.?EKG showing atrial flutter/tachycardia, RAD and nonspecific ST and T-wave changes. COVID, Influenza and RSV PCR negative. Lasix IV started. Echo showing normal LV size and systolic fxn with EF 55-60% and RV systolic dysfunction, mod-severe pHTN, and severe biatrial enlargement. [place] she has acute diastolic CHF with right sided CHF. Repeat CXR 10/18 showed persistent left sided pleural effusion (also shown on chest X-ray on 10/15). Thoracentesis performed on 10/19, removed 660ml of yellowish fluid. Pleural fluid culture shows no growth in 48hrs. Pleural analysis labs show lymphocytic-dominant fluid. Pleural analysis labs: transudative using Lights Criteria. Cardiology consulted and she was started Entresto 10/13 and is tolerating well. Patient hypoxic on admission. She does not wear O2 prior to admission.?Pulmonary consulted and appreciate their input. ABG showing 7.44/46/61 on 4.5L. CTA chest showing no CT evidence of acute pulmonary embolus. but does show eccentric right interlobar filling defect with occlusion of the RML segmental branch and weblike defect in the bilateral lower lobe pulmonary arteries, most consistent with chronic pulmonary emboli. Peripheral lingular and left lower lobe atelectasis/consolidation. Patchy areas of reticular and ground glass opacities in the RLL, may represent chronic embolic change or infection. And a 7 mm RML pulmonary nodule and small bilateral pleural effusions. The pulmonary nodule will need further workup with follow-up CT chest in 3 months, PET/CT, or tissue sampling. Her hypoxia may be chronic due to chronic PEs causing pHTN. Also with atelectasis and consolidation. Also with severe pulmonary HTN related to chronic PE and/or ESTER. Speech therapy evaluated the patient and she passed her speech swallow test, no signs of aspiration noted throughout the assessment. She has ESTER but not CO2 retainer. Apnea link on BiPAP not able to be accomplished. Initial EKG showing atrial f
[2023-10-28 15:49] LABS: SARS-CoV-2 RNA PCR Negative (Negative)
[2023-10-28] MEDS: SERTRALINE HCL 50 MG TABLET 100 MG PO (21:12)
[2023-10-28] MEDS: PRAVASTATIN SODIUM 20 MG TABLET PO (21:14)
== END 2023-10-28 23:05 | DRG 291 ==
LOC: ANHED 08:58 → ANH2MED 10:46 → ANH3MED 10-26 23:32
PROVIDERS: Family Medicine; Internal Medicine; Nurse Practitioner Family; Student in an Organized Health Care Education/Training Program; Admitting Provider Family Medicine; Emergency Provider Emergency Medicine; Visit Provider Internal Medicine
DX: I11.0 Hypertensive heart disease with heart failure (principal); I50.23 Acute on chronic systolic (congestive) heart failure; I27.82 Chronic pulmonary embolism; J90 Pleural effusion, not elsewhere classified; I48.92 Unspecified atrial flutter; I82.412 Acute embolism and thrombosis of left femoral vein; I82.432 Acute embolism and thrombosis of left popliteal vein; I47.10 Supraventricular tachycardia, unspecified; N39.0 Urinary tract infection, site not specified; R91.1 Solitary pulmonary nodule; G47.33 Obstructive sleep apnea (adult) (pediatric); I27.20 Pulmonary hypertension, unspecified; E78.5 Hyperlipidemia, unspecified; E21.1 Secondary hyperparathyroidism, not elsewhere classified; E11.9 Type 2 diabetes mellitus without complications; F32.A Depression, unspecified; F03.90 Unspecified dementia, unspecified severity, without behavioral disturbance, psychotic disturbance, mood disturbance, and anxiety; I44.0 Atrioventricular block, first degree; J44.9 Chronic obstructive pulmonary disease, unspecified; R32 Unspecified urinary incontinence; F17.210 Nicotine dependence, cigarettes, uncomplicated; Z66 Do not resuscitate; Z88.0 Allergy status to penicillin; Z11.52 Encounter for screening for COVID-19; Z20.822 Contact with and (suspected) exposure to COVID-19
CPT/HCPCS: 32555; 36415; 36600; 71045; 71046; 71275; 80048; 80053; 80069; 82042; 82150; 82805; 82945; 82948; 83036; 83615; 83735; 83880; 83986; 84100; 84157; 84311; 84478; 85025; 85027; 85049; 85610; 85730; 87070; 87075; 87086; 87088; 87205; 87635; 87637; 88108; 88305; 89051; 92610; 93005; 93306; 93970; 94640; 94667; 94762; 96374; 96375; 96376; 97161; 97165; 99285; A9270; G0378; J1940; J7030; Q9967

== ENCOUNTER 2023-11-12 14:55 | Emergency (ER) | payer MEDICARE, SELFPAY ==
--- NOTE | ~2023-11-12 | XR_ITS ---
EXAMINATION: XR knee RT 3V DATE: 11/12/2023 15:55 INDICATION: Right knee injury. TECHNIQUE: 3 views of right knee were obtained. COMPARISON: None. FINDINGS: Bone alignment is normal. No fracture. There is moderate tricompartmental osteoarthritis. T here is a small knee joint effusion. IMPRESSION: 1. Moderate right knee osteoarthritis. 2. Small right knee joint effusion. Reviewed, dictated and finalized at location E.
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
[2023-11-12 14:51] VITALS: BP 123/81; PULSE 88; RESP 18; TEMP 37; O2SAT 99
[2023-11-12 16:20] VITALS: BP 119/61; PULSE 94; RESP 17; O2SAT 98
[2023-11-12] MEDS: MORPHINE SULFATE (*CRX) 2 MG/ML INJ IV PUSH (16:22)
[2023-11-12 16:31] VITALS: BP 108/60; PULSE 90; RESP 19; O2SAT 97
[2023-11-12 16:31] LABS: Basophils Percent Auto 0.1 % (0.2-1.2); Eosinophils Absolute Auto 0.1 K/mm3 (0-0.3); Eosinophils Percent Auto 1.2 % (0-4.4); Hematocrit 35.7 % (37.0-47.0); Hemoglobin 10.9 g/dL (12.0-15.0); Immature Granulocyte Absolute 0.03 K/mm3 (0.00-0.031); Immature Granulocyte Percent A 0.4 % (0-0.5); Lymphocytes Absolute Auto 1.67 K/mm3 (0.9-3.2); Lymphocytes Percent Auto 19.5 % (18.3-44.2); Mean Corpuscular HGB Conc 30.5 g/dl (32-36); Mean Corpuscular Hemoglobin 28.7 pg (26-34); Mean Corpuscular Volume 93.9 fl (80-100); Mean Platelet Volume 10.3 fl (7.4-10.4); Monocytes Absolute Auto 1.4 K/mm3 (0.1-0.6); Monocytes Percent Auto 16.1 % (2.6-8.5); Neutrophils Absolute Auto 5.4 K/mm3 (1.3-6.7); Neutrophils Percent Auto 62.7 % (45.5-73.1); Platelet Count Result 231 k/mm3 (150-375); White Blood Count 8.6 K/mm3 (4.5-10.0)
[2023-11-12 16:38] LABS: Alanine Aminotransferase 34 U/L (6-35); Albumin Level 3.4 g/dL (3.5-5.1); Alkaline Phosphatase 100 U/L (38-126); Anion Gap 2 mmol/L (4-12); Aspartate Amino Transferase 41 U/L (14-36); Bilirubin,Total 0.7 mg/dL (0.2-1.3); Blood Urea Nitrogen 23 mg/dL (7-17); Calcium 10.3 mg/dL (8.4-10.2); Carbon Dioxide 33 mmol/L (22-30); Chloride 99 mmol/L (98-107); Estimated Glomerular Filt Rate > 60; Glucose 146 mg/dL (65-110); Sodium 134 mmol/L (137-145)
[2023-11-12 16:39] LABS: INR 1.1; Prothrombin Time 14.6 Seconds (11.1-14.7)
[2023-11-12 16:40] LABS: Partial Thromboplastin Time 31.2 Seconds (22.3-36.8)
[2023-11-12 17:17] VITALS: BP 105/53; PULSE 100; RESP 17; O2SAT 98
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
[2023-11-12 18:47] VITALS: BP 104/59; PULSE 98; RESP 18; O2SAT 99
== END 2023-11-12 19:06 ==
PROVIDERS: Emergency Provider Emergency Medicine
DX: S79.911A Unspecified injury of right hip, initial encounter (principal); R10.31 Right lower quadrant pain; F03.90 Unspecified dementia, unspecified severity, without behavioral disturbance, psychotic disturbance, mood disturbance, and anxiety; J44.9 Chronic obstructive pulmonary disease, unspecified; I10 Essential (primary) hypertension; E78.5 Hyperlipidemia, unspecified; E66.9 Obesity, unspecified; E21.3 Hyperparathyroidism, unspecified; G47.33 Obstructive sleep apnea (adult) (pediatric); R73.03 Prediabetes; F33.9 Major depressive disorder, recurrent, unspecified; F17.210 Nicotine dependence, cigarettes, uncomplicated; M16.0 Bilateral primary osteoarthritis of hip; M17.11 Unilateral primary osteoarthritis, right knee; W03.XXXA Other fall on same level due to collision with another person, initial encounter
CPT/HCPCS: 36415; 73502; 73562; 80053; 85025; 85610; 85730; 96374; 99284; J2270